=== PATIENT | male | born 1985 | race Caucasian/White ===

== ENCOUNTER → 2021-07-23 16:25 | Outpatient (CLI) | payer OTHER, SELFPAY ==
--- NOTE | 2021-07-23 16:35 | MRI_ITS ---
EXAM: MR HEAD WITHOUT AND WITH INTRAVENOUS CONTRAST CLINICAL INDICATION: DIZZINESS -- IAC TECHNIQUE: Multiplanar and multisequence MR images of the brain were obtained without and with intravenous contrast. This report was created using [email or web address] technology. CONTRAST: IV 22cc dotarem COMPARISON: None. FINDINGS: BRAIN AND EXTRA-AXIAL SPACES: Unremarkable. No intra- or extra-axial hemorrhage. No evidence of acute infarct. No intracranial mass or mass effect. There is preservation of the bright/white matter interface. Posterior fossa structures are unremarkable. Ventricles are appropriate for age. No hydrocephalus. Basal cisterns are patent. SELLA: Unremarkable. Normal sella turcica, pituitary gland, infundibular stalk, optic chiasm and hypothalamus. AUDITORY SYSTEM: Unremarkable. The internal auditory canals are patent. BONES/JOINTS: Unremarkable. No discrete lytic or blastic abnormalities. SINUSES: There is sinus disease. MASTOID AIR CELLS: Unremarkable as visualized. Clear. ORBITS: Unremarkable as visualized. Both globes, extraocular muscles, optic nerves and retrobulbar fat appear unremarkable. VASCULATURE: Unremarkable as visualized. Normal flow voids in the major intracranial circulation. MRI/Brain W/WO Contrast IMPRESSION: No acute findings in the head/brain. Electronically Signed: Prashant Sharp MD at 18:17 EST , Service support ,
== END ==
PROVIDERS: Visit Provider Otolaryngology
DX: R42 Dizziness and giddiness (principal)
CPT/HCPCS: 70553; A9575

== ENCOUNTER 2021-09-10 10:35 | Outpatient (CLI) | payer OTHER, SELFPAY ==
[2021-09-10 10:38] LABS: Bacteria 0 SEEN /hpf (None Seen); Mucous, Urine 0 SEEN /hpf (<or=2+); Red Blood Cells-Urine 0 SEEN /hpf (0-5); White Blood Cells 0 SEEN /hpf (0-5)
[2021-09-10 12:28] LABS: Color, Urine Yellow (Yellow); Glucose, Dipstick Normal (Normal); Ketone-Dipstick Negative (Negative); Leukocyte Esterase-Dipstick Negative /ul (Negative); Nitrite-Dipstick Negative (Negative); Occult Blood-Urine Negative /ul (Negative); Protein-Dipstick Negative (Negative); Specific Gravity, Urine 1.015 (1.002-1.030); Urine Bilirubin Dipstick Negative (Negative); Urine Clarity Clear (Clear); Urine Urobilinogen Normal (Normal)
[2021-09-10 12:30] LABS: Absolute Lymphocyte Count 0.76 X10^3/uL (0.83-4.51); Absolute Neutrophil Count 3.8 X10^3/uL (2.0-7.7); Basophil# 0.04 X10^3/uL; Basophil% 0.7 % (0-1); Eosinophil# 0.66 X10^3/uL; Eosinophils% 11.3 % (0-5); Hematocrit 44.8 % (40-54); Hemoglobin 15.3 g/dL (13.0-16.5); Lymphocyte # 0.76 X10^3/ul (0.83-4.51); Mean Corp Hgb Conc 34.2 g/dL (32-36); Mean Corpuscular Hgb 29.1 pg (27.0-32.0); Mean Corpuscular Volume 85.2 fL (80-94); Mean Platelet Vol. 10.6 fl (6.2-12.0); Monocyte# 0.58 X10^3/uL; Monocyte% 9.9 % (0-10); NRBC Flagged by Analyzer 0 % (0-5); Neutrophil % 64.9 % (47-70); Platelet Count 201 K/mm3 (150-450); RBC Distribution Width CV 12.5 % (11.6-14.6); RBC Distribution Width SD 38.7 fl (35.1-43.9); Red Blood Count 5.26 M/mm3 (4.6-6.2); White Blood Count 5.9 K/mm3 (4.4-11.0)
[2021-09-10 12:33] LABS: Squamous Epithelial Cells - UA 0-5 SEEN /hpf (0-5)
[2021-09-10 13:24] LABS: ALB/GLOB Ratio 1.2 RATIO (0.9-2.4); AST(SGOT) 14 U/L (15-37); Alanine Aminotransfer ALT/SGPT 36 U/L (16-61); Albumin, Serum 4.1 g/dL (3.2-5.0); Alkaline Phosphatase 57 U/L (45-117); Anion Gap 6 (5-15); BUN 13 mg/dL (7-18); BUN/Creat Ratio 12.7 RATIO (10-20); Chloride 105 mmol/L (98-107); Cholesterol 196 mg/dL (200); Creatinine, Serum 1.02 mg/dL (0.70-1.30); EST Glomerular Filtration Rate 89 mL/min (>60); Est Glom Filt Rate - Afr Amer 107 mL/min (>60); Globulin 3.5 g/dL (2.2-4.2); Glucose 93 mg/dL (74-106); High Density Lipoprotein 44 mg/dL; Magnesium 2.2 mg/dL (1.6-2.6); Potassium 4.3 mmol/L (3.5-5.1); Protein, Total 7.6 g/dL (6.4-8.2); Sodium Level 139 mmol/L (136-145); Thyroid Stim Hormone (TSH) 1.96 uIU/mL (0.358-3.74); Triglycerides 114 mg/dL; Very Low Density Lipoprotein 23 mg/dL (5-40)
== END 2021-09-10 23:59 | disposition short-term general hospital (02) ==
LOC: MFPLAB 10:37
PROVIDERS: PCP Family Medicine; Referring Provider Family Medicine; Visit Provider Family Medicine
DX: R03.0 Elevated blood-pressure reading, without diagnosis of hypertension (principal); E66.9 Obesity, unspecified
CPT/HCPCS: 36415; 80053; 80061; 81001; 83735; 84443; 85025

== ENCOUNTER → 2021-12-28 | Outpatient (CLI) | payer OTHER, SELFPAY ==
--- NOTE | 2021-12-28 13:47 | RAD_ITS ---
EXAM: XR RIGHT FOOT COMPLETE, 3 OR MORE VIEWS CLINICAL INDICATION: PAIN TECHNIQUE: Frontal, lateral and oblique views of the right foot. This report was created using [employer] report generation technology. COMPARISON: None. FINDINGS: BONES/JOINTS: Unremarkable. No acute fracture. No subluxation. Normal alignment. Preservation of the joint space. No sclerotic or destructive changes observed. SOFT TISSUES: Unremarkable. No soft tissue swelling or gas. No radiopaque foreign body. RAD/Foot min 3 Views IMPRESSION: Negative right foot x-rays. Electronically Signed: Da Hahn MD at 18:06 EDT ,
--- NOTE | 2021-12-28 13:47 | RAD_ITS ---
EXAM: XR RIGHT ANKLE COMPLETE, 3 OR MORE VIEWS CLINICAL INDICATION: PAIN TECHNIQUE: Frontal, lateral and oblique views of the right ankle. This report was created using [employer] report generation technology. COMPARISON: None. FINDINGS: BONES/JOINTS: Unremarkable. No acute fracture. No subluxation. Normal alignment. Preservation of the joint space. No sclerotic or destructive changes observed. SOFT TISSUES: Minimal soft tissue swelling over the lateral malleolus. No radiopaque foreign body. RAD/Ankle min 3 Views IMPRESSION: Soft tissue swelling with no osseous abnormality. Electronically Signed: Da Hahn MD at 14:15 EDT ,
== END | disposition home or self-care (01) ==
PROVIDERS: PCP Family Medicine; Referring Provider Family Medicine; Visit Provider Family Medicine
DX: M25.571 Pain in right ankle and joints of right foot (principal); M79.671 Pain in right foot
CPT/HCPCS: 73610; 73630

== ENCOUNTER → 2023-10-19 | Outpatient (CLI) | payer OTHER, SELFPAY ==
--- NOTE | 2023-10-19 10:11 | RAD_ITS ---
INDICATION: abd pain EXAMINATION/TECHNIQUE: X-RAY - XR Abdomen Series W/ Chest 1 View COMPARISON: No relevant prior comparison study available FINDINGS: --Chest: LINES/DEVICES: None. LUNGS: No consolidation, edema or effusion. No pneumothorax. MEDIASTINUM AND CARDIOVASCULAR STRUCTURES: Cardiac silhouette not enlarged. Central airways and mediastinal contour are unremarkable. BONES AND SOFT TISSUES: No acute findings. --Abdomen: BOWEL GAS PATTERN: Non-obstructive. No bowel or stomach distention. Moderate fecal retention. FREE AIR: None visualized. ORGANOMEGALY: Not seen. CALCIFICATIONS: No abnormal calcifications observed. BONES AND SOFT TISSUES: No acute findings. RAD/Acute Abdomen Inc Chest IMPRESSION: No active pulmonary disease. Nonobstructive gas pattern. Electronically Signed: Angel Fox MD at 13:12 EST ,
[2023-10-19 12:42] LABS: Erythrocyte Sedimentation Rate 14 mm/hr (0-20)
[2023-10-19 13:09] LABS: Absolute Lymphocyte Count 1.11 X10^3/uL (0.83-4.51); Absolute Neutrophil Count 6.7 X10^3/uL (2.0-7.7); Basophil# 0.03 X10^3/uL; Basophil% 0.3 % (0-1); Eosinophils% 2.3 % (0-5); Hematocrit 43.9 % (40-54); Hemoglobin 14.4 g/dL (13.0-16.5); Lymphocyte # 1.11 X10^3/ul (0.83-4.51); Lymphocyte % 12.8 % (19-41); Mean Corp Hgb Conc 32.8 g/dL (32-36); Mean Corpuscular Hgb 29.3 pg (27.0-32.0); Mean Corpuscular Volume 89.2 fL (80-94); Mean Platelet Vol. 10.3 fl (6.2-12.0); Monocyte# 0.61 X10^3/uL; NRBC Flagged by Analyzer 0 % (0-5); Neutrophil # 6.71 X10^3/uL (2.7-7.7); Neutrophil % 77.1 % (47-70); Platelet Count 276 K/mm3 (150-450); RBC Distribution Width CV 12.7 % (11.6-14.6); RBC Distribution Width SD 41.1 fl (35.1-43.9); Red Blood Count 4.92 M/mm3 (4.6-6.2); White Blood Count 8.7 K/mm3 (4.4-11.0)
[2023-10-19 13:21] LABS: ALB/GLOB Ratio 1.1 RATIO (0.9-2.4); AST(SGOT) 15 U/L (15-37); Alanine Aminotransfer ALT/SGPT 27 U/L (16-61); Albumin, Serum 3.8 g/dL (3.2-5.0); Alkaline Phosphatase 61 U/L (45-117); Anion Gap 5 (5-15); BUN 13 mg/dL (7-18); BUN/Creat Ratio 10.2 RATIO (10-20); Chloride 104 mmol/L (98-107); Creatinine, Serum 1.28 mg/dL (0.70-1.30); EST Glomerular Filtration Rate 67 mL/min (>60); Est Glom Filt Rate - Afr Amer 81 mL/min (>60); Globulin 3.6 g/dL (2.2-4.2); Glucose 124 mg/dL (74-106); Protein, Total 7.4 g/dL (6.4-8.2); Sodium Level 136 mmol/L (136-145)
[2023-10-25 00:07] LABS: Calprotectin, Stool 18 ug/g (0-120)
== END | disposition home or self-care (01) ==
PROVIDERS: PCP Family Medicine; Referring Provider Family Medicine; Visit Provider Family Medicine
DX: K52.9 Noninfective gastroenteritis and colitis, unspecified (principal); R10.9 Unspecified abdominal pain
CPT/HCPCS: 36415; 74022; 80053; 83630; 83993; 85025; 85652

== ENCOUNTER → 2024-01-26 | Outpatient (CLI) | payer OTHER, SELFPAY ==
[2024-01-26 17:49] LABS: Absolute Lymphocyte Count 1.39 X10^3/uL (0.83-4.51); Absolute Neutrophil Count 3.6 X10^3/uL (2.0-7.7); Basophil# 0.05 X10^3/uL; Basophil% 0.8 % (0-1); Eosinophils% 6.8 % (0-5); Hematocrit 44.7 % (40-54); Hemoglobin 15.3 g/dL (13.0-16.5); Lymphocyte # 1.39 X10^3/ul (0.83-4.51); Lymphocyte % 23.6 % (19-41); Mean Corp Hgb Conc 34.2 g/dL (32-36); Mean Corpuscular Hgb 29.5 pg (27.0-32.0); Mean Corpuscular Volume 86.3 fL (80-94); Mean Platelet Vol. 10.9 fl (6.2-12.0); Monocyte# 0.48 X10^3/uL; Monocyte% 8.1 % (0-10); NRBC Flagged by Analyzer 0 % (0-5); Neutrophil # 3.56 X10^3/uL (2.7-7.7); Neutrophil % 60.4 % (47-70); Platelet Count 296 K/mm3 (150-450); RBC Distribution Width CV 12.7 % (11.6-14.6); RBC Distribution Width SD 39.7 fl (35.1-43.9); Red Blood Count 5.18 M/mm3 (4.6-6.2); White Blood Count 5.9 K/mm3 (4.4-11.0)
[2024-01-26 18:19] LABS: Vitamin B12 368 pg/mL (211-911); Vitamin D,25 Hydroxy 28.3 ng/mL
[2024-01-26 18:34] LABS: ALB/GLOB Ratio 1.4 RATIO (0.9-2.4); AST(SGOT) 18 U/L (15-37); Alanine Aminotransfer ALT/SGPT 36 U/L (16-61); Albumin, Serum 4.3 g/dL (3.2-5.0); Alkaline Phosphatase 65 U/L (45-117); Anion Gap 7 (5-15); BUN 25 mg/dL (7-18); BUN/Creat Ratio 17.2 RATIO (10-20); Chloride 106 mmol/L (98-107); Creatinine, Serum 1.45 mg/dL (0.70-1.30); EST Glomerular Filtration Rate 58 mL/min (>60); Est Glom Filt Rate - Afr Amer 70 mL/min (>60); Globulin 3.1 g/dL (2.2-4.2); Glucose 84 mg/dL (74-106); Potassium 4.2 mmol/L (3.5-5.1); Protein, Total 7.4 g/dL (6.4-8.2); Sodium Level 138 mmol/L (136-145); T4 Free Direct 0.78 ng/dL (0.76-1.46); Thyroid Stim Hormone (TSH) 1.48 uIU/mL (0.358-3.74)
== END | disposition home or self-care (01) ==
LOC: MFPLAB 14:19
PROVIDERS: PCP Family Medicine; Referring Provider Family Medicine; Visit Provider Family Medicine
DX: K52.9 Noninfective gastroenteritis and colitis, unspecified (principal); R10.9 Unspecified abdominal pain; R53.83 Other fatigue
CPT/HCPCS: 36415; 80053; 82306; 82607; 84439; 84443; 85025

== ENCOUNTER → 2024-02-03 | Outpatient (CLI) | payer OTHER, SELFPAY ==
[2024-02-03 18:02] LABS: Anion Gap 6 (5-15); BUN 21 mg/dL (7-18); BUN/Creat Ratio 18.3 RATIO (10-20); Calcium,Total 9.2 mg/dL (8.5-10.1); Chloride 105 mmol/L (98-107); Creatinine, Serum 1.15 mg/dL (0.70-1.30); EST Glomerular Filtration Rate 76 mL/min (>60); Est Glom Filt Rate - Afr Amer 92 mL/min (>60); Glucose 97 mg/dL (74-106); Potassium 4.1 mmol/L (3.5-5.1); Sodium Level 138 mmol/L (136-145)
== END | disposition home or self-care (01) ==
PROVIDERS: PCP Family Medicine; Visit Provider Family Medicine
DX: R94.4 Abnormal results of kidney function studies (principal)
CPT/HCPCS: 36415; 80048

== ENCOUNTER → 2024-07-19 | Outpatient (CLI) | payer OTHER, SELFPAY ==
[2024-07-19 18:35] LABS: ALB/GLOB Ratio 1.3 RATIO (0.9-2.4); AST(SGOT) 21 U/L (15-37); Alanine Aminotransfer ALT/SGPT 48 U/L (16-61); Albumin, Serum 4.5 g/dL (3.2-5.0); Alkaline Phosphatase 59 U/L (45-117); Anion Gap 7 (5-15); BUN 20 mg/dL (7-18); BUN/Creat Ratio 16.5 RATIO (10-20); Calcium,Total 9.3 mg/dL (8.5-10.1); Chloride 102 mmol/L (98-107); Creatinine, Serum 1.21 mg/dL (0.70-1.30); EST Glomerular Filtration Rate 72 mL/min (>60); Est Glom Filt Rate - Afr Amer 87 mL/min (>60); Globulin 3.4 g/dL (2.2-4.2); Glucose 100 mg/dL (74-106); Magnesium 2.2 mg/dL (1.6-2.6); Protein, Total 7.9 g/dL (6.4-8.2); Sodium Level 136 mmol/L (136-145)
[2024-07-20 09:12] LABS: Vitamin D,25 Hydroxy 50.7 ng/mL
== END | disposition home or self-care (01) ==
LOC: MFPLAB 16:09
PROVIDERS: PCP Family Medicine; Visit Provider Family Medicine
DX: E55.9 Vitamin D deficiency, unspecified (principal)
CPT/HCPCS: 36415; 80053; 82306; 83735

== ENCOUNTER → 2024-11-06 | Outpatient (CLI) | payer OTHER, SELFPAY ==
[2024-11-06 17:45] LABS: Absolute Lymphocyte Count 1.26 X10^3/uL (0.83-4.51); Absolute Neutrophil Count 2.7 X10^3/uL (2.0-7.7); Basophil# 0.05 X10^3/uL; Basophil% 1.1 % (0-1); Eosinophil# 0.27 X10^3/uL; Eosinophils% 5.8 % (0-5); Hematocrit 46.5 % (40-54); Hemoglobin 15.3 g/dL (13.0-16.5); Lymphocyte # 1.26 X10^3/ul (0.83-4.51); Lymphocyte % 27.2 % (19-41); Mean Corp Hgb Conc 32.9 g/dL (32-36); Mean Corpuscular Hgb 29.5 pg (27.0-32.0); Mean Corpuscular Volume 89.6 fL (80-94); Mean Platelet Vol. 10.7 fl (6.2-12.0); Monocyte# 0.33 X10^3/uL; Monocyte% 7.1 % (0-10); NRBC Flagged by Analyzer 0 % (0-5); Neutrophil # 2.71 X10^3/uL (2.7-7.7); Neutrophil % 58.6 % (47-70); Platelet Count 274 K/mm3 (150-450); RBC Distribution Width CV 12.9 % (11.6-14.6); RBC Distribution Width SD 42.5 fl (35.1-43.9); Red Blood Count 5.19 M/mm3 (4.6-6.2); White Blood Count 4.6 K/mm3 (4.4-11.0)
[2024-11-06 21:16] LABS: ALB/GLOB Ratio 1.7 RATIO (0.9-2.4); AST(SGOT) 19 U/L (<=37); Alanine Aminotransfer ALT/SGPT 24 U/L (<=46); Albumin, Serum 4.6 g/dL (3.5-5.0); Alkaline Phosphatase 57 U/L (40-129); Anion Gap 12 (5-15); BUN 19 mg/dL (4-19); BUN/Creat Ratio 17.5 RATIO (10-20); Calcium,Total 9.7 mg/dL (7.6-11.0); Carbon Dioxide 25.7 mmol/L (21.0-32.0); Chloride 102 mmol/L (98-108); Cholesterol 217 mg/dL (<=200); Creatinine, Serum 1.08 mg/dL (0.70-1.20); EST Glomerular Filtration Rate 91 (>60); Globulin 2.7 g/dL (2.2-4.2); Glucose 79 mg/dL (70-99); High Density Lipoprotein 45 mg/dL; Low Density Lipoprotein Calc. 155 mg/dL; Magnesium 2.1 mg/dL (1.5-2.2); Potassium 4.3 mmol/L (3.3-5.1); Protein, Total 7.3 g/dL (5.9-8.4); Sodium Level 139 mmol/L (133-145); Total Bilirubin 0.47 mg/dL (0.00-1.30); Triglycerides 84 mg/dL; Very Low Density Lipoprotein 17 mg/dL (5-40); Vitamin D,25 Hydroxy 77.5 ng/mL (30-100)
== END | disposition home or self-care (01) ==
LOC: MFPLAB 13:36
PROVIDERS: PCP Family Medicine; Referring Provider Family Medicine; Visit Provider Family Medicine
DX: E55.9 Vitamin D deficiency, unspecified (principal); R94.4 Abnormal results of kidney function studies; E66.9 Obesity, unspecified
CPT/HCPCS: 36415; 80053; 80061; 82306; 83735; 85025

== ENCOUNTER → 2025-01-22 | Outpatient (CLI) | payer OTHER, SELFPAY ==
[2025-01-22 20:40] LABS: ALB/GLOB Ratio 1.7 RATIO (0.9-2.4); AST(SGOT) 23 U/L (<=37); Alanine Aminotransfer ALT/SGPT 22 U/L (<=46); Albumin, Serum 4.7 g/dL (3.5-5.0); Alkaline Phosphatase 68 U/L (40-129); Anion Gap 11 (5-15); BUN 21 mg/dL (4-19); BUN/Creat Ratio 15.8 RATIO (10-20); Calcium,Total 10.1 mg/dL (7.6-11.0); Carbon Dioxide 27.2 mmol/L (21.0-32.0); Chloride 102 mmol/L (98-108); Creatinine, Serum 1.32 mg/dL (0.70-1.20); EST Glomerular Filtration Rate 71 (>60); Globulin 2.8 g/dL (2.2-4.2); Glucose 71 mg/dL (70-99); Magnesium 2.4 mg/dL (1.5-2.2); Potassium 4.4 mmol/L (3.3-5.1); Protein, Total 7.5 g/dL (5.9-8.4); Sodium Level 140 mmol/L (133-145); Total Bilirubin 0.52 mg/dL (0.00-1.30); Vitamin D,25 Hydroxy 85.6 ng/mL (30-100)
== END | disposition home or self-care (01) ==
LOC: MFPLAB 15:06
PROVIDERS: PCP Family Medicine; Referring Provider Family Medicine; Visit Provider Family Medicine
DX: E55.9 Vitamin D deficiency, unspecified (principal); E83.42 Hypomagnesemia
CPT/HCPCS: 36415; 80053; 82306; 83735

== ENCOUNTER → 2025-08-07 | Outpatient (CLI) | payer OTHER, SELFPAY ==
--- OUTSIDE RECORDS SUMMARY | 2025-08-07 08:49 | XMS RPT_ITS | CCD ---
Author Organization [facility] Care Team Providers Care American History Teacher Name Role Phone MOISÉS MILLS Unavailable Unavailable MEEK SONG Unavailable Unavailable HADLEY MOORE Unavailable Unavailable ISHAAN WOODARD, ANGELA Primary Care Physician HADLEY MOORE Primary Care Unavailable MILDRED LOZADA Attending Unavailable Hadley Moore MD Primary Care Provider John Farris Unavailable RAMON CHAHAL DO Attending Unavailable ISHAAN WOODARD, ANGELA Primary Care Unavailable DR CHRISTIANO MOMIN MD Attending Unavailalex QUIROS MD, ANGELA Primary Care Unavailable TRELL KABA Attending UnavailANGELA Faria MD Primary Care Unavailable Dr. Angela Quiros MD Primary Care Provider Dr. Angela Quiros MD Attending Provider Dr. Angela Quiros MD Referring Provider Dr. Angela Quiros MD Primary Care Provider [phone] Dr. Angela Quiros MD Attending Provider Angela Quiros Attending Unavailable Angela Quiros Primary Care Unavailable Angela Quiros Attending Unavailable Angela Quiros Primary Care Unavailable Angela Quiros Attending Unavailable Angela Quiros Primary Care Unavailable Angela Quiros Referring Unavailable Angela Quiros Attending Unavailable Angela Quiros Primary Care Unavailable Angela Quiros Referring Unavailable Allergies Allergy Classification Reported Allergen(s) Allergy Type Date of Onset Reaction(s) Facility (2 sources) Amoxicillin; Translations: [AMOXICILLIN] Drug Allergy 07-26-2013 Diarrhea [facility] Repository Medications Current Medications Medication Drug Class(es) Dates Sig (Normalized) Sig (Original) acetaminophen 325 mg / HYDROcodone bitartrate 5 mg oral tablet (1 source) Opioid Agonist Start: 10-18-2023 End: 10-21-2023 take 1 tablet by mouth every six hours as needed for pain [place] 325- 5 mg oral tablet Dose = 1 tab(s), Oral, q6h, PRN as needed for pain, X 3 day(s), # 12 tab(s), 0 Refill(s), Abdominal pain, 118.2 Start Date: 10/18/23 Stop Date: 10/21/23 Status: Ordered albuterol MDI (90 mcg/inh) CFC free inhalation aerosol (1 source) Start: 08-16-2020 take 2 puff(s) by inhalation every four hours albuterol MDI (90 mcg/inh) CFC free inhalation aerosol 2 puff(s), Inhalation, q4h, # 1 EA, 0 Refill(s), Suspected COVID-19 Dyspnea Start Date: 08/16/20 Status: Ordered cetirizine hydrochloride 10 mg oral tablet (3 sources) Histamine-1 Receptor Antagonist Start: 10-06-2022 Zyrtec 10 mg oral tablet Dose : 10 mg = 1 tab(s), Oral, qDay, # 30 tab(s), 0 Refill(s) Start Date: 10/06/22 Status: Ordered ondansetron 4 mg disintegrating oral tablet (1 source) Serotonin-3 Receptor Antagonist Start: 10-18-2023 End: 10-22-2023 ondansetron 4 mg oral tablet, disintegrating Dose : 4 mg = 1 tab(s), Oral, q6h, X 4 day(s), # 16 tab(s), 0 Refill(s), 10/22/23 12:12:00 AM EST Start Date: 10/18/23 Stop Date: 10/22/23 Status: Ordered Testosterone (3 sources) Androgen Start: 10-06-2022 testosterone cypionate qWeek, 0 Refill(s), 118.2 Start Date: 10/06/22 Status: Ordered Completed/Discontinued Medications Medication Drug Class(es) Dates Sig (Normalized) Sig (Original) Magnesium glycinate (1 source) take 600 mg by mouth once daily MAGNESIUM GLYCINATE ORAL Take 600 mg by mouth once daily. 0 Active Comment on above: Take 600 mg by mouth once daily. omeprazole 20 mg delayed release oral capsule (1 source) Proton Pump Inhibitor Start: 11-28-2013 End: 01-18-2023 take 2 capsules by mouth once daily before breakfast omeprazole (PRILOSEC) 20 mg capsule Take 2 capsules by mouth daily before breakfast. 60 capsule 0 11/28/2013 01/18/2023 Discontinued Comment on above: Take 2 capsules by m outh daily before breakfast. predniSONE 10 mg oral tablet (3 sources) Start: 10-06-2022 End: 10-18-2022 prednisone 10mg tab (TAPER) Taper 40-30-20-10 x 3 days each dose, Oral, qDay, Take with food/meal, # 30 tab(s), 0 Refill(s), Pharmacy: [facility]/pharmacy #[id number] Start Date: 10/06/22 Stop Date: 10/18/22 Status: Ordered sertraline 50 mg oral tablet (1 source) Serotonin Reuptake Inhibitor Start: 01-02-2023 take 1 tablet by mouth once daily sertraline (ZOLOFT) 50 mg tablet Take 50 mg by mouth once daily. 0 01/02/2023 Active Comment on above: Take 50 mg by mouth once daily. Problems Active Problems Problem Classification Problem Date Documented Da te Episodic/Chronic Abdominal pain (3 sources) Abdominal pain; Translations: [Unspecified abdominal pain] Onset: 10-18-2023 Episodic Contraceptive and procreative management (2 sources) Encounter for other general counseling and advice on contraception; Translations: [Patient encounter status] Onset: 01-18-2023 Episodic Malaise and fatigue (1 source) Fatigue; Translations: [Other fatigue] Episodic Nutritional deficiencies (2 sources) Vitamin D deficiency; Translations: [Vitamin D deficiency, unspecified] Onset: 01-29-2025 Chronic Other endocrine disorders (1 source) Disorder of endocrine testis; 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, unspecified] Chronic Other endocrine disorders (1 source) Testicular hypofunction; Translations: [Testicular hypofunction] Chronic Other screening for suspected conditions (not mental disorders or infectious disease) (2 sources) Abnormal findings on diagnostic imaging of other specified body structures; Translations: [Abnormal findings on diagnostic imaging of other specified body structures] Onset: 10-28-2023 Chronic Other upper respiratory disease (3 sources) Seasonal allergy 10-06-2022 Chronic Past or Other Problems Problem Classification Problem Date Documented Da te Episodic/Chronic Other screening for suspected conditions (not mental disorders or infectious disease) (1 source) Abnormal results of kidney function studies; Translations: [Abnormal results of kidney function studies] Onset: 02-14-2024 Episodic Results Test Name Value Interpretation Reference Range Facility Anion gap in Serum or Plasma Ordered By: Angela Quiros on 01-22-2025 Anion gap [Moles/Vol] 11 mmol/L - [facility] BUN/creatinine ratioOrdered By: Angela Quiros on 01-22-2025 Urea nitrogen/Creatinine [Mass ratio] 15.8 mg/mg 06-03 [facility] Bilirubin, totalOrdered By: Angela Quiros on 01-22-2025 Bilirubin [Mass/Vol] 0.52 mg/dL 0.00-1.30 [facility] Carbon dioxide, total [Moles /volume] in Central venous bloodOrdered By: Angela Quiros on 01-22-2025 CO2 [Moles/Vol] 27.2 mmol/L 21.0-32.0 [facility] Chloride assayOrdered By: Denisha Quiros on 01-22-2025 Chloride [Moles/Vol] 102 mmol/L 98-108 [facility] Comprehensive Metabolic Prof ilon 01-22-2025 Albumin [Mass/Vol] 4.7 g/dL Normal 3.5-5.0 [facility] Comment on above: Order Comment: Order Date: 07/19/24 Order Info: 0786-1 - CMP Order Info: [id number] - MG Performed By: #### L 506.1000, L500.4050, L501.5200 #### [facility] [address] [place], [address] Albumin/Globulin [Mass ratio] 1.7 {ratio} Normal 0.9-2.4 [facility] Comment on above: Order Comment: Order Date: 07/19/24 Order Info: 0786-1 - CMP Order Info: [id number] - MG Performed By: #### L 506.1000, L500.4050, L501.5200 #### [facility] [address] [place], [address] ALK PHOS 68 U/L Normal 40-129 [facility] Comment on above: Order Comment: Order Date: 07/19/24 Order Info: [id number] - CMP Order Info: [id number] - MG Performed By: #### L 506.1000, L500.4050, L501.5200 #### [facility] [address] [place], [address] ALT [Catalytic activity/Vol] 22 U/L Normal <=46 [facility] Comment on above: Order Comment: Order Date: 07/19/24 Order Info: [id number] - CMP Order Info: [id number] - MG Performed By: #### L 506.1000, L500.4050, L501.5200 #### [facility] [address] [place], [address] AST [Catalytic activity/Vol] 23 U/L Normal <=37 [facility] Comment on above: Order Comment: Order Date: 07/19/24 Order Info: [id number] - CMP Order Info: [id number] - MG Performed By: #### L 506.1000, L500.4050, L501.5200 #### [facility] [address] [place], [address] Bilirubin [Mass/Vol] 0.52 mg/dL Normal 0.00-1.30 [facility] Comment on above: Order Comment: Order Date: 07/19/24 Order Info: 0786-1 - CMP Order Info: [id number] - MG Performed By: #### L 506.1000, L500.4050, L501.5200 #### [facility] [address] [place], [address] BUN/CRE 15.8 RATIO Normal 10-20 [facility] Comment on above: Order Comment: Order Date: 07/19/24 Order Info: [id number] - CMP Order Info: [id number] - MG Performed By: #### L 506.1000, L500.4050, L501.5200 #### [facility] [address] [place], [address] Calcium [Mass/Vol] 10.1 mg/dL Normal 7.6-11.0 [facility] Comment on above: Order Comment: Order Date: 07/19/24 Order Info: [id number] - CMP Order Info: [id number] - MG Performed By: #### L 506.1000, L500.4050, L501.5200 #### [facility] [address] [place], [address] Chloride [Moles/Vol] 102 mmol/L Normal 98-108 [facility] Comment on above: Order Comment: Order Date: 07/19/24 Order Info: [id number] - CMP Order Info: [id number] - MG Performed By: #### L 506.1000, L500.4050, L501.5200 #### [facility] [address] [place], [address] CO2 [Moles/Vol] 27.2 mmol/L Normal 21.0-32.0 [facility] Comment on above: Order Comment: Order Date: 07/19/24 Order Info: 0786-1 - CMP Order Info: [id number] - MG Performed By: #### L 506.1000, L500.4050, L501.5200 #### [facility] [address] [place], [address] Creatinine [Mass/Vol] 1.32 mg/dL High 0.70-1.20 [facility] Comment on above: Order Comment: Order Date: 07/19/24 Order Info: [id number] - CMP Order Info: [id number] - MG Performed By: #### L 506.1000, L500.4050, L501.5200 #### [facility] [address] [place], [address] GAP 11 Normal 5-15 [facility] Comment on above: Order Comment: Order Date: 07/19/24 Order Info: 0786-1 - CMP Order Info: [id number] - MG Performed By: #### L 506.1000, L500.4050, L501.5200 #### [facility] [address] [place], [address] GFR/1.73 sq M.predicted among non-blacks MDRD (S/P/Bld) [Vol rate/Area] 71 mL/min/{1.73_m2} Normal >60 [facility] Comment on above: Order Comment: Order Date: 07/19/24 Order Info: [id number] - CMP Order Info: [id number] - MG Result Comment: mL/m in/1.73m2 CKD-EPI Creatinine Equation (2020) Performed By: #### L 506.1000, L500.4050, L501.5200 #### [facility] [address] [place], [address] Globulin (S) [Mass/Vol] 2.8 g/dL Normal 2.2-4.2 [facility] Comment on above: Order Comment: Order Date: 07/19/24 Order Info: 0786-1 - CMP Order Info: [id number] - MG Performed By: #### L 506.1000, L500.4050, L501.5200 #### [facility] [address] [place], [address] Glucose [Mass/Vol] 71 mg/dL Normal 70-99 [facility] Comment on above: Order Comment: Order Date: 07/19/24 Order Info: [id number] - CMP Order Info: [id number] - MG Performed By: #### L 506.1000, L500.4050, L501.5200 #### [facility] [address] [place], [address] Potassium [Moles/Vol] 4.4 mmol/L Normal 3.3-5.1 [facility] Comment on above: Order Comment: Order Date: 07/19/24 Order Info: 0786-1 - CMP Order Info: [id number] - MG Performed By: #### L 506.1000, L500.4050, L501.5200 #### [facility] [address] [place], [address] Sodium [Moles/Vol] 140 mmol/L Normal 133-145 [facility] Comment on above: Order Comment: Order Date: 07/19/24 Order Info: 0786-1 - CMP Order Info: [id number] - MG Performed By: #### L 506.1000, L500.4050, L501.5200 #### [facility] [address] [place], [address] T PROT 7.5 g/dL Normal 5.9-8.4 [facility] Comment on above: Order Comment: Order Date: 07/19/24 Order Info: 0786-1 - CMP Order Info: [id number] - MG Performed By: #### L 506.1000, L500.4050, L501.5200 #### [facility] [address] [place], [address] Urea nitrogen [Mass/Vol] 21 mg/dL High 4-19 [facility] Comment on above: Order Comment: Order Date: 07/19/24 Order Info: [id number] - CMP Order Info: [id number] - MG Performed By: #### L 506.1000, L500.4050, L501.5200 #### [facility] [address] [place], [address] Glomerular filtration rate ( GFR) estimation/1.73 sq m using serum, plasma, or whole bOrdered By: Angela Quiros on 01-22-2025 GFR/1.73 sq M.predicted among non-blacks MDRD (S/P/Bld) [Vol rate/Area] 71 mL/min/{1.73_m2} >60 [facility] Comment on above: mL/min/1.73m2 CKD-EP I Creatinine Equation (2020) Laboratory - Chemistry and C hemistry - challengeOrdered By: Angela Quiros on 01-22-2025 AST [Catalytic activity/Vol] 23 U/L <38 [facility] Magnesiumon 01-22-2025 Magnesium [Mass/Vol] 2.4 mg/dL High 1.5-2.2 [facility] Comment on above: Order Comment: Order Date: 07/19/24 Order Info: [id number] - CMP Order Info: [id number] - MG Performed By: #### L 506.1000, L500.4050, L501.5200 #### [facility] [address] [place], [place], [id number] Magnesium measurement (mass/ volume)Ordered By: Angela Quiros on 01-22-2025 Magnesium (Unsp spec) [Mass/Vol] 2.4 mg/dL High 1.5-2.2 [facility] Potassium measurement (mass/ volume)Ordered By: Angela Quiros on 01-22-2025 Potassium (Unsp spec) [Mass/Vol] 4.4 mmol/L 3.3-5.1 [facility] Serum creatinine measurement (mass/volume)Ordered By: Angela Quiros on 01-22-2025 Creatinine [Mass/Vol] 1.32 mg/dL High 0.70-1.20 [facility] Serum globulin measurementOr dered By: Angela Quiros on 01-22-2025 Globulin (S) [Mass/Vol] 2.8 g/dL 2.2-4.2 [facility] Serum glucose measurement (m ass/volume)Ordered By: Angela Quiros on 01-22-2025 Glucose [Mass/Vol] 71 mg/dL 70-99 [facility] Serum or plasma alanine caicedo otransferase (ALT) measurementOrdered By: Angela Quiros on 01-22-2025 ALT [Catalytic activity/Vol] 22 U/L <47 [facility] Serum or plasma albumin philippe urement (mass/volume)Ordered By: Angela Quiros on 01-22-2025 Albumin [Mass/Vol] 4.7 g/dL 3.5-5.0 [facility] Serum or plasma albumin/glob ulin mass ratioOrdered By: Angela Quiros on 01-22-2025 Albumin/Globulin [Mass ratio] 1.7 {ratio} 0.9-2.4 [facility] Serum or plasma alkaline mercy sphatase measurementOrdered By: Angela Quiros on 01-22-2025 ALP [Catalytic activity/Vol] 68 U/L 40-129 [facility] Serum or plasma calcium philippe urement (mass/volume)Ordered By: Angela Quiros on 01-22-2025 Calcium [Mass/Vol] 10.1 mg/dL 7.6-11.0 [facility] Serum or plasma urea nitroge n measurement (mass/volume)Ordered By: Angela Quiros on 01-22-2025 Urea nitrogen [Mass/Vol] 21 mg/dL High 4-19 [facility] Sodium levelOrdered By: Angela Quiros on 01-22-2025 Sodium [Moles/Vol] 140 mmol/L 133-145 [facility] Total proteinOrdered By: Aamir Quiros on 01-22-2025 Protein [Mass/Vol] 7.5 g/dL 5.9-8.4 [facility] Vitamin D,25 Hydroxyon 01-22 Vitamin D 25-OH 85.6 ng/mL Normal 30-100 [facility] Comment on above: Order Comment: Order Date: 01/22/25 Order Info: [id number] - CMP Order Info: [id number] - MG Result Comment: Tbaby min D Status Deficiency: <20 ng/mL (50nmol/L) Insufficiency: 20-30 ng/mL (50-75 nmol/L) Sufficiency: 30-100 ng/mL (75-250 nmol/L) Toxicity: >100 ng/mL (>250 nmol/L) Performed By: #### L 506.1001 #### [facility] [address] [place], [place], [id number] Absolute lymphocyte countOrd ered By: Angela Quiros on 11-06-2024 Lymphocytes Auto (Unsp spec) [#/Vol] 1.26 10*3/uL 0.83-4.51 [facility] Absolute neutrophil countOrd ered By: Angela Quiros on 11-06-2024 Neutrophils (Bld) [#/Vol] 2.7 10*3/uL 2.0-7.7 [facility] Anion gap in Serum or Plasma Ordered By: Angela Quiros on 11-06-2024 Anion gap [Moles/Vol] 12 mmol/L 12-27 [facility] Automated lymphocyte count a s percentage of total leukocytesOrdered By: Angela Quiros on 11-06-2024 Lymphocytes/100 WBC Auto (Unsp spec) 27.2 % [facility] BUN/creatinine ratioOrdered By: Angela Quiros on 11-06-2024 Urea nitrogen/Creatinine [Mass ratio] 17.5 mg/mg 06-03 [facility] Basophil percentageOrdered B y: Angela Quiros on 11-06-2024 Basophils/100 WBC (Bld) 1.1 % High 0-1 [facility] Bilirubin, totalOrdered By: Angela Quiros on 11-06-2024 Bilirubin [Mass/Vol] 0.47 mg/dL 0.00-1.30 [facility] CBC W/Diff, Automatedon 10-14 Absolute Lymph 1.26 X10 3/uL Normal 0.83-4.51 [facility] Comment on above: Performed By: #### L 500.4050, L100.0100, L500.4100, L506.1001, L501.5200 #### [facility] [address] [place], [address] Absolute Neut 2.7 X10 3/uL Normal 2.0-7.7 [facility] Comment on above: Performed By: #### L 500.4050, L100.0100, L500.4100, L506.1001, L501.5200 #### [facility] [address] [place], [address] Basophils/100 WBC (Bld) 1.1 % High 0-1 [facility] Comment on above: Performed By: #### L 500.4050, L100.0100, L500.4100, L506.1001, L501.5200 #### [facility] [address] [place], [address] Eosinophils/100 WBC (Bld) 5.8 % High 0-5 [facility] Comment on above: Performed By: #### L 500.4050, L100.0100, L500.4100, L506.1001, L501.5200 #### [facility] [address] [place], [address] Erythrocyte distribution width (RBC) [Ratio] 12.9 % Normal 11.6-14.6 [facility] Comment on above: Performed By: #### L 500.4050, L100.0100, L500.4100, L506.1001, L501.5200 #### [facility] [address] [place], [address] Hematocrit (Bld) [Volume fraction] 46.5 % Normal 40-54 [facility] Comment on above: Performed By: #### L 500.4050, L100.0100, L500.4100, L506.1001, L501.5200 #### [facility] [address] [place], [address] Hemoglobin (Bld) [Mass/Vol] 15.3 g/dL Normal 13.0-16.5 [facility] Comment on above: Performed By: #### L 500.4050, L100.0100, L500.4100, L506.1001, L501.5200 #### [facility] [address] [place], [address] IG% 0.200 Normal 0.0-0.9 [facility] Comment on above: Result Comment: IG% - Immature Granulocytes (promyelocytes, myelocytes and metamyelocytes) > 1% indicates that a LEFT SHIFT is Present. Performed By: #### L 500.4050, L100.0100, L500.4100, L506.1001, L501.5200 #### [facility] [address] [place], [address] Lymphocytes/100 WBC (Bld) 27.2 % Normal 19-41 [facility] Comment on above: Performed By: #### L 500.4050, L100.0100, L500.4100, L506.1001, L501.5200 #### [facility] [address] [place], [address] MCH (RBC) [Entitic mass] 29.5 pg Normal 27.0-32.0 [facility] Comment on above: Performed By: #### L 500.4050, L100.0100, L500.4100, L506.1001, L501.5200 #### [facility] [address] [place], [address] MCHC (RBC) [Mass/Vol] 32.9 g/dL Normal 32-36 [facility] Comment on above: Performed By: #### L 500.4050, L100.0100, L500.4100, L506.1001, L501.5200 #### [facility] [address] [place], [address] MCV (RBC) [Entitic vol] 89.6 fL Normal 80-94 [facility] Comment on above: Performed By: #### L 500.4050, L100.0100, L500.4100, L506.1001, L501.5200 #### [facility] [address] [place], [address] Monocytes/100 WBC (Bld) 7.1 % Normal 0-10 [facility] Comment on above: Performed By: #### L 500.4050, L100.0100, L500.4100, L506.1001, L501.5200 #### [facility] [address] [place], [address] Neutrophils/100 WBC (Bld) 58.6 % Normal 47-70 [facility] Comment on above: Performed By: #### L 500.4050, L100.0100, L500.4100, L506.1001, L501.5200 #### [facility] [address] [place], [address] Nucleated RBC (Bld) [#/Vol] 0 10*3/uL Normal 0-5 [facility] Comment on above: Performed By: #### L 500.4050, L100.0100, L500.4100, L506.1001, L501.5200 #### [facility] [address] [place], [address] Platelet mean volume (Bld) [Entitic vol] 10.7 fL Normal 6.2-12.0 [facility] Comment on above: Performed By: #### L 500.4050, L100.0100, L500.4100, L506.1001, L501.5200 #### [facility] [address] [place], [address] Platelets (Bld) [#/Vol] 274 10*3/uL Normal 150-450 [facility] Comment on above: Performed By: #### L 500.4050, L100.0100, L500.4100, L506.1001, L501.5200 #### [facility] [address] [place], [address] RBC (Bld) [#/Vol] 5.19 10*6/uL Normal 4.6-6.2 [facility] Comment on above: Performed By: #### L 500.4050, L100.0100, L500.4100, L506.1001, L501.5200 #### [facility] [address] [place], [address] RDW SD 42.5 fl Normal 35.1-43.9 [facility] Comment on above: Performed By: #### L 500.4050, L100.0100, L500.4100, L506.1001, L501.5200 #### [facility] [address] [place], [place], [id number] WBC (Bld) [#/Vol] 4.6 10*3/uL Normal 4.4-11.0 [facility] Comment on above: Performed By: #### L 500.4050, L100.0100, L500.4100, L506.1001, L501.5200 #### [facility] [address] [place], [address] Calculated very low density lipoprotein (VLDL) cholesterol measurementOrdered By: Angela Quiros on 11-06-2024 Calculated very low density lipoprotein (VLDL) cholesterol measurement 17 mg/dL -40 [facility] VLDL Cholesterol 17 mg/dL 40 [facility] Carbon dioxide, total [Moles /volume] in Central venous bloodOrdered By: Angela Quiros on 11-06-2024 CO2 [Moles/Vol] 25.7 mmol/L 21.0-32.0 [facility] Chloride assayOrdered By: Denisha Quiros on 11-06-2024 Chloride [Moles/Vol] 102 mmol/L 98-108 [facility] Comprehensive Metabolic Prof ilon 11-06-2024 Albumin [Mass/Vol] 4.6 g/dL Normal 3.5-5.0 [facility] Comment on above: Performed By: #### L 500.4050, L100.0100, L500.4100, L506.1001, L501.5200 #### [facility] [address] [place], [place], [id number] Albumin/Globulin [Mass ratio] 1.7 {ratio} Normal 0.9-2.4 [facility] Comment on above: Performed By: #### L 500.4050, L100.0100, L500.4100, L506.1001, L501.5200 #### [facility] [address] [place], [address] ALK PHOS 57 U/L Normal 40-129 [facility] Comment on above: Performed By: #### L 500.4050, L100.0100, L500.4100, L506.1001, L501.5200 #### [facility] [address] [place], [address] ALT [Catalytic activity/Vol] 24 U/L Normal <=46 [facility] Comment on above: Performed By: #### L 500.4050, L100.0100, L500.4100, L506.1001, L501.5200 #### [facility] [address] [place], [address] AST [Catalytic activity/Vol] 19 U/L Normal <=37 [facility] Comment on above: Performed By: #### L 500.4050, L100.0100, L500.4100, L506.1001, L501.5200 #### [facility] [address] [place], [address] Bilirubin [Mass/Vol] 0.47 mg/dL Normal 0.00-1.30 [facility] Comment on above: Performed By: #### L 500.4050, L100.0100, L500.4100, L506.1001, L501.5200 #### [facility] [address] [place], [address] BUN/CRE 17.5 RATIO Normal 10-20 [facility] Comment on above: Performed By: #### L 500.4050, L100.0100, L500.4100, L506.1001, L501.5200 #### [facility] [address] [place], [address] Calcium [Mass/Vol] 9.7 mg/dL Normal 7.6-11.0 [facility] Comment on above: Performed By: #### L 500.4050, L100.0100, L500.4100, L506.1001, L501.5200 #### [facility] [address] [place], [address] Chloride [Moles/Vol] 102 mmol/L Normal 98-108 [facility] Comment on above: Performed By: #### L 500.4050, L100.0100, L500.4100, L506.1001, L501.5200 #### [facility] [address] [place], [address] CO2 [Moles/Vol] 25.7 mmol/L Normal 21.0-32.0 [facility] Comment on above: Performed By: #### L 500.4050, L100.0100, L500.4100, L506.1001, L501.5200 #### [facility] [address] [place], [address] Creatinine [Mass/Vol] 1.08 mg/dL Normal 0.70-1.20 [facility] Comment on above: Performed By: #### L 500.4050, L100.0100, L500.4100, L506.1001, L501.5200 #### [facility] [address] [place], [address] GAP 12 Normal 5-15 [facility] Comment on above: Performed By: #### L 500.4050, L100.0100, L500.4100, L506.1001, L501.5200 #### [facility] [address] [place], [address] GFR/1.73 sq M.predicted among non-blacks MDRD (S/P/Bld) [Vol rate/Area] 91 mL/min/{1.73_m2} Normal >60 [facility] Comment on above: Result Comment: mL/m in/1.73m2 CKD-EPI Creatinine Equation (2020) Performed By: #### L 500.4050, L100.0100, L500.4100, L506.1001, L501.5200 #### [facility] [address] [place], [address] Globulin (S) [Mass/Vol] 2.7 g/dL Normal 2.2-4.2 [facility] Comment on above: Performed By: #### L 500.4050, L100.0100, L500.4100, L506.1001, L501.5200 #### [facility] [address] [place], [address] Glucose [Mass/Vol] 79 mg/dL Normal 70-99 [facility] Comment on above: Performed By: #### L 500.4050, L100.0100, L500.4100, L506.1001, L501.5200 #### [facility] [address] [place], [address] Potassium [Moles/Vol] 4.3 mmol/L Normal 3.3-5.1 [facility] Comment on above: Performed By: #### L 500.4050, L100.0100, L500.4100, L506.1001, L501.5200 #### [facility] [address] [place], [address] Sodium [Moles/Vol] 139 mmol/L Normal 133-145 [facility] Comment on above: Performed By: #### L 500.4050, L100.0100, L500.4100, L506.1001, L501.5200 #### [facility] [address] [place], [address] T PROT 7.3 g/dL Normal 5.9-8.4 [facility] Comment on above: Performed By: #### L 500.4050, L100.0100, L500.4100, L506.1001, L501.5200 #### [facility] [address] [place], [address] Urea nitrogen [Mass/Vol] 19 mg/dL Normal 4-19 [facility] Comment on above: Performed By: #### L 500.4050, L100.0100, L500.4100, L506.1001, L501.5200 #### [facility] [address] [place], [address] Eosinophil percentageOrdered By: Angela Quiros on 11-06-2024 Eosinophils/100 WBC (Bld) 5.8 % High 0-5 [facility] Erythrocyte distribution wid th ratioOrdered By: Angela Quiros on 11-06-2024 Erythrocyte distribution width (RBC) [Ratio] 12.9 % 11.6-14.6 [facility] Erythrocyte distribution wid th standard deviationOrdered By: Angela Quiros on 11-06-2024 Erythrocyte distribution width (RBC) [Entitic vol] 42.5 fL 35.1-43.9 [facility] Erythrocyte distribution width (RBC) [Ratio] 42.5 fl 35.1-43.9 [facility] GFR/1.73 sq M.predicted torsten g non-blacks MDRD (S/P/Bld) [Vol rate/Area]Ordered By: Angela Quiros on 11-06-2024 Estimated GFR (MDRD) Non-Af Amer 91 >60 [facility] Comment on above: mL/min/1.73m2 CKD-EP I Creatinine Equation (2020) Glomerular filtration rate ( GFR) estimation/1.73 sq m using serum, plasma, or whole bOrdered By: Angela Quiros on 11-06-2024 GFR/1.73 sq M.predicted among non-blacks MDRD (S/P/Bld) [Vol rate/Area] 91 mL/min/{1.73_m2} >60 [facility] Comment on above: mL/min/1.73m2 CKD-EP I Creatinine Equation (2020) Hematocrit Auto (Bld) [Volum e fraction]Ordered By: Angela Quiros on 11-06-2024 Hematocrit (Bld) [Volume fraction] 46.5 % 40-54 [facility] Hemoglobin measurementOrdere d By: Angela Quiros on 11-06-2024 Hemoglobin (Bld) [Mass/Vol] 15.3 g/dL 13.0-16.5 [facility] Immature granulocytes/100 WB C Auto (Bld)Ordered By: Angela Quiros on 11-06-2024 Immature granulocytes/100 WBC (Bld) 0.200 % 0.0-0.9 [facility] Comment on above: IG% - Immature Granu locytes (promyelocytes, myelocytes and metamyelocytes) > 1% indicates that a LEFT SHIFT is Present. L506.1001on 11-06-2024 Vitamin D 25-OH 77.5 ng/mL Normal 30-100 [facility] Comment on above: Result Comment: Tabby min D Status Deficiency: <20 ng/mL (50nmol/L) Insufficiency: 20-30 ng/mL (50-75 nmol/L) Sufficiency: 30-100 ng/mL (75-250 nmol/L) Toxicity: >100 ng/mL (>250 nmol/L) Performed By: #### L 500.4050, L100.0100, L500.4100, L506.1001, L501.5200 #### [facility] [place], [address] LDL calc ser/plasOrdered By: Angela Quiros on 11-06-2024 Cholesterol in LDL [Mass/Vol] 155 mg/dL [facility] Comment on above: Zglcnykzez=471-416 m g/dL & Higher Ftzn=201 mg/dL or greater LDL Cholesterol, Calculated 155 mg/dL [facility] Comment on above: Kkukbubwdx=847-323 m g/dL & Higher Mhoo=508 mg/dL or greater Laboratory - Chemistry and C hemistry - challengeOrdered By: Angela Quiros on 11-06-2024 AST [Catalytic activity/Vol] 19 U/L <38 [facility] Lipid Profileon 11-06-2024 CHOL:HDL 4.80 Normal [facility] Comment on above: Performed By: #### L 500.4050, L100.0100, L500.4100, L506.1001, L501.5200 #### [facility] [address] [place], [address] Cholesterol [Mass/Vol] 217 mg/dL High <=200 [facility] Comment on above: Result Comment: Chol esterol level, Desirable <200 mg/dL Borderline high cholesterol 200-239 mg/dL High cholesterol >=240 mg/dL Recommendations of the NCEP Adult Treatment Panel for the following risk-cutoff thresholds for the [place] population. Performed By: #### L 500.4050, L100.0100, L500.4100, L506.1001, L501.5200 #### [facility] [address] [place], [address] Cholesterol in HDL [Mass/Vol] 45 mg/dL Normal [facility] Comment on above: Result Comment: Sandra onal Cholesterol Education Program (NCEP) guidelines: <40 mg/dL: Low HDL-cholesterol (major risk factor for CHD) >= 60 mg/dL: High HDL-cholesterol (negative risk factor for CHD) HDL-cholesterol is affected by a number of factors, e.g. smoking, exercise, hormones, sex and age. Performed By: #### L 500.4050, L100.0100, L500.4100, L506.1001, L501.5200 #### [facility] [address] [place], [address] Cholesterol in LDL [Mass/Vol] 155 mg/dL Normal [facility] Comment on above: Result Comment: Bord afgwch=952-180 mg/dL Higher Swfo=773 mg/dL or greater Performed By: #### L 500.4050, L100.0100, L500.4100, L506.1001, L501.5200 #### [facility] [address] [place], [address] Cholesterol in VLDL [Mass/Vol] 17 mg/dL Normal 5-40 [facility] Comment on above: Performed By: #### L 500.4050, L100.0100, L500.4100, L506.1001, L501.5200 #### [facility] [address] [place], [address] Triglyceride [Mass/Vol] 84 mg/dL Normal [facility] Comment on above: Result Comment: The drugs N-Acetylcysteine and Metamizole may falsely depress this assay. Normal range: <150 mg/dL Borderline High: 150-199 mg/dL High: 200-499 mg/dL Very High: >500 mg/dL Performed By: #### L 500.4050, L100.0100, L500.4100, L506.1001, L501.5200 #### [facility] [address] [place], [address] Lymphocytes Auto (Unsp spec) [#/Vol]Ordered By: Angela Quiros on 11-06-2024 Lymphocytes (Bld) [#/Vol] 1.26 10*3/uL 0.83-4.51 [facility] Lymphocytes/100 WBC Auto (Un sp spec)Ordered By: Angela Quiros on 11-06-2024 Lymphocytes/100 WBC (Bld) 27.2 % 19-41 [facility] MCV (mean corpuscular volume ) determinationOrdered By: Angela Quiros on 11-06-2024 MCV (RBC) [Entitic vol] 89.6 fL 80-94 [facility] Magnesiumon 11-06-2024 Magnesium [Mass/Vol] 2.1 mg/dL Normal 1.5-2.2 [facility] Comment on above: Performed By: #### L 500.4050, L100.0100, L500.4100, L506.1001, L501.5200 #### [facility] [address] [place], [address] Magnesium (Unsp spec) [Mass/ Vol]Ordered By: Angela Quiros on 11-06-2024 Magnesium [Mass/Vol] 2.1 mg/dL 1.5-2.2 [facility] Magnesium measurement (mass/ volume)Ordered By: Angela Quiros on 11-06-2024 Magnesium (Unsp spec) [Mass/Vol] 2.1 mg/dL 1.5-2.2 [facility] Mean corpuscular hemoglobin (MCH) determinationOrdered By: Angela Quiros on 11-06-2024 MCH (RBC) [Entitic mass] 29.5 pg 27.0-32.0 [facility] Mean corpuscular hemoglobin concentration (MCHC) determinationOrdered By: Angela Quiros on 11-06-2024 MCHC (RBC) [Mass/Vol] 32.9 g/dL 32-36 [facility] Mean platelet volume determi nationOrdered By: Angela Quiros on 11-06-2024 Platelet mean volume (Bld) [Entitic vol] 10.7 fL 6.2-12.0 [facility] Monocyte percentageOrdered B y: Angela Quiros on 11-06-2024 Monocytes/100 WBC (Bld) 7.1 % 0-10 [facility] Neutrophil percentageOrdered By: Angela Quiros on 11-06-2024 Neutrophils/100 WBC (Bld) 58.6 % 47-70 [facility] Nucleated red blood cell per centageOrdered By: Angela Quiros on 11-06-2024 Nucleated RBC/100 WBC (Bld) [Ratio] 0 % 0-5 [facility] Platelet countOrdered By: Denisha Quiros on 11-06-2024 Platelets (Bld) [#/Vol] 274 10*3/uL 150-450 [facility] Potassium (Unsp spec) [Mass/ Vol]Ordered By: Angela Quiros on 11-06-2024 Potassium [Moles/Vol] 4.3 mmol/L 3.3-5.1 [facility] Potassium measurement (mass/ volume)Ordered By: Angela Quiros on 11-06-2024 Potassium (Unsp spec) [Mass/Vol] 4.3 mmol/L 3.3-5.1 [facility] RBC Auto (Bld) [#/Vol]Ordere d By: Angela Quiros on 11-06-2024 RBC (Bld) [#/Vol] 5.19 10*6/uL 4.6-6.2 [facility] Screening total cholesterol/ high density lipoprotein (HDL) cholesterol ratioOrdered By: Angela Quiros on 11-06-2024 Cholesterol.total/Kimberly sterol in HDL [Mass ratio] 4.80 {ratio} [facility] Serum creatinine measurement (mass/volume)Ordered By: Angela Quiros on 11-06-2024 Creatinine [Mass/Vol] 1.08 mg/dL 0.70-1.20 [facility] Serum globulin measurementOr dered By: Angela Quiros on 11-06-2024 Globulin (S) [Mass/Vol] 2.7 g/dL 2.2-4.2 [facility] Serum glucose measurement (m ass/volume)Ordered By: Angela Quiros on 11-06-2024 Glucose [Mass/Vol] 79 mg/dL 70-99 [facility] Serum or plasma alanine caicedo otransferase (ALT) measurementOrdered By: Angela Quiros on 11-06-2024 ALT [Catalytic activity/Vol] 24 U/L <47 [facility] Serum or plasma albumin philippe urement (mass/volume)Ordered By: Angela Quiros on 11-06-2024 Albumin [Mass/Vol] 4.6 g/dL 3.5-5.0 [facility] Serum or plasma albumin/glob ulin mass ratioOrdered By: Angela Quiros on 11-06-2024 Albumin/Globulin [Mass ratio] 1.7 {ratio} 0.9-2.4 [facility] Serum or plasma alkaline mercy sphatase measurementOrdered By: Angela Quiros on 11-06-2024 ALP [Catalytic activity/Vol] 57 U/L 40-129 [facility] Serum or plasma calcium philippe urement (mass/volume)Ordered By: Angela Quiros on 11-06-2024 Calcium [Mass/Vol] 9.7 mg/dL 7.6-11.0 [facility] Serum or plasma cholesterol in HDL measurement (mass/volume)Ordered By: Angela Quiros on 11-06-2024 Cholesterol in HDL [Mass/Vol] 45 mg/dL >40 [facility] Comment on above: National Cholesterol Education Program (NCEP) guidelines:<40 mg/dL: Low HDL-cholesterol (major risk factor for CHD)>= 60 mg/dL: High HDL-cholesterol (negative risk factor for CHD)HDL-cholesterol is affected by a number of factors, e.g. smoking, exercise, hormones, sex and age. Serum or plasma cholesterol measurement (mass/volume)Ordered By: Angela Quiros on 11-06-2024 Cholesterol [Mass/Vol] 217 mg/dL High <201 [facility] Comment on above: Cholesterol level, D esirable <200 mg/dLBorderline high cholesterol 200-239 mg/dLHigh cholesterol >=240 mg/dLRecommendations of the NCEP Adult Treatment Panel for the following risk-cutoff thresholds for the [place] population. Serum or plasma urea nitroge n measurement (mass/volume)Ordered By: Angela Quiros on 11-06-2024 Urea nitrogen [Mass/Vol] 19 mg/dL 4-19 [facility] Sodium levelOrdered By: Angela Quiros on 11-06-2024 Sodium [Moles/Vol] 139 mmol/L 133-145 [facility] Total proteinOrdered By: Aamir Quiros on 11-06-2024 Protein [Mass/Vol] 7.3 g/dL 5.9-8.4 [facility] Triglycerides measurementOrd ered By: Angela Quiros on 11-06-2024 Triglyceride [Mass/Vol] 84 mg/dL <199 [facility] Comment on above: The drugs N-Acetylcy steine and Metamizole may falsely depress this assay. Normal range: <150 mg/dLBorderline High: 150-199 mg/dLHigh: 200-499 mg/dLVery High: >500 mg/dL Vitamin D, 25-hydroxyOrdered By: Angela Quiros on 11-06-2024 Vitamin D 25-Hydroxy 77.5 ng/mL 30-100 [facility] Comment on above: Vitamin D StatusDefi ciency: <20 ng/mL (50nmol/L)Insufficiency: 20-30 ng/mL (50-75 nmol/L)Sufficiency: 30-100 ng/mL (75-250 nmol/L)Toxicity: >100 ng/mL (>250 nmol/L) White blood cell (WBC) count Ordered By: Angela Quiros on 11-06-2024 WBC (Bld) [#/Vol] 4.6 10*3/uL 4.4-11.0 [facility] Vitamin D,25 Hydroxyon 07-20 Vitamin D 25-OH 50.7 ng/mL Normal [facility] Comment on above: Order Comment: Order Date: 07/19/24 Order Info: [id number] - VITD25 Result Comment: Tabby min D 25(OH) Status Range Deficiency <20 ng/mL (50nmol/L) Insufficiency 20 - 30 ng/mL (50 - 75 nmol/L) Sufficiency 30 - 100 ng/mL (75 - 250 nmol/L) Toxicity >100 ng/mL (>250 nmol/L) Performed By: #### L 506.1000, L500.4050, L501.5200 #### [facility] [address] [place], [address] [id number] DOrdered By: Fernanda Quiros on 07-19-2024 Vitamin D 25-Hydroxy 50.7 ng/mL [facility] Comment on above: Vitamin D 25(OH) Sta tus Range Deficiency <20 ng/mL (50nmol/L) Insufficiency 20 - 30 ng/mL (50 - 75 nmol/L) Sufficiency 30 - 100 ng/mL (75 - 250 nmol/L) Toxicity >100 ng/mL (>250 nmol/L) Albumin to globulin ratioOrd ered By: Angela Quiros on 07-19-2024 Albumin/Globulin [Mass ratio] 1.3 {ratio} 0.9-2.4 [facility] Bilirubin, totalOrdered By: Angela Quiros on 07-19-2024 Bilirubin [Mass/Vol] 0.40 mg/dL 0.20-1.00 [facility] Comment on above: For patients on eltr ombopag therapy, use of Dimension [place] TBIL is not recommended. Blood urea nitrogen (BUN)/cr eatinine ratioOrdered By: Angela Quiros on 07-19-2024 Urea nitrogen/Creatinine [Mass ratio] 16.5 mg/mg 10-20 [facility] Carbon dioxide measurementOr dered By: Angela Quiros on 07-19-2024 CO2 [Moles/Vol] 28.0 mmol/L 21.0-32.0 [facility] Chloride measurementOrdered By: Angela Quiros on 07-19-2024 Chloride [Moles/Vol] 102 mmol/L 98-107 [facility] Comprehensive Metabolic Prof ilon 07-19-2024 Albumin [Mass/Vol] 4.5 g/dL Normal 3.2-5.0 [facility] Comment on above: Order Comment: Order Date: 07/19/24 Order Info: [id number] - CMP Order Info: [id number] - MG Performed By: #### L 506.1000, L500.4050, L501.5200 #### [facility] [address] [place], [address] Albumin/Globulin [Mass ratio] 1.3 {ratio} Normal 0.9-2.4 [facility] Comment on above: Order Comment: Order Date: 07/19/24 Order Info: [id number] - CMP Order Info: [id number] - MG Performed By: #### L 506.1000, L500.4050, L501.5200 #### [facility] [address] [place], [address] ALK P 59 U/L Normal 45-117 [facility] Comment on above: Order Comment: Order Date: 07/19/24 Order Info: [id number] - CMP Order Info: [id number] - MG Performed By: #### L 506.1000, L500.4050, L501.5200 #### [facility] [address] [place], [address] ALT [Catalytic activity/Vol] 48 U/L Normal 16-61 [facility] Comment on above: Order Comment: Order Date: 07/19/24 Order Info: [id number] - CMP Order Info: [id number] - MG Performed By: #### L 506.1000, L500.4050, L501.5200 #### [facility] [address] [place], [address] AST [Catalytic activity/Vol] 21 U/L Normal 15-37 [facility] Comment on above: Order Comment: Order Date: 07/19/24 Order Info: [id number] - CMP Order Info: [id number] - MG Performed By: #### L 506.1000, L500.4050, L501.5200 #### [facility] [address] [place], [address] Bilirubin [Mass/Vol] 0.40 mg/dL Normal 0.20-1.00 [facility] Comment on above: Order Comment: Order Date: 07/19/24 Order Info: [id number] - CMP Order Info: [id number] - MG Result Comment: For patients on eltrombopag therapy, use of Dimension [place] TBIL is not recommended. Performed By: #### L 506.1000, L500.4050, L501.5200 #### [facility] [address] [place], [address] BUN/CRE 16.5 RATIO Normal 10-20 [facility] Comment on above: Order Comment: Order Date: 07/19/24 Order Info: [id number] - CMP Order Info: [id number] - MG Performed By: #### L 506.1000, L500.4050, L501.5200 #### [facility] [address] [place], [address] CA,Total 9.3 mg/dL Normal 8.5-10.1 [facility] Comment on above: Order Comment: Order Date: 07/19/24 Order Info: [id number] - CMP Order Info: [id number] - MG Performed By: #### L 506.1000, L500.4050, L501.5200 #### [facility] [address] [place], [address] Chloride [Moles/Vol] 102 mmol/L Normal 98-107 [facility] Comment on above: Order Comment: Order Date: 07/19/24 Order Info: [id number] - CMP Order Info: [id number] - MG Performed By: #### L 506.1000, L500.4050, L501.5200 #### [facility] [address] [place], [address] CO2 [Moles/Vol] 28.0 mmol/L Normal 21.0-32.0 [facility] Comment on above: Order Comment: Order Date: 07/19/24 Order Info: 07- - CMP Order Info: [id number] - MG Performed By: #### L 506.1000, L500.4050, L501.5200 #### [facility] [address] [place], [address] Creatinine [Mass/Vol] 1.21 mg/dL Normal 0.70-1.30 [facility] Comment on above: Order Comment: Order Date: 07/19/24 Order Info: [id number] - CMP Order Info: [id number] - MG Result Comment: The validity of the calculated GFR GFRAA in patients over 70 years has not been determined. Clinical correlation is essential. Performed By: #### L 506.1000, L500.4050, L501.5200 #### [facility] [address] [place], [address] EST GFR - AA 87 mL/min Normal >60 [facility] Comment on above: Order Comment: Order Date: 07/19/24 Order Info: 07- - CMP Order Info: [id number] - MG Result Comment: Afri can [place] GFR Calc Performed By: #### L 506.1000, L500.4050, L501.5200 #### [facility] [address] [place], [address] GAP 7 Normal 5-15 [facility] Comment on above: Order Comment: Order Date: 07/19/24 Order Info: 07- - CMP Order Info: [id number] - MG Performed By: #### L 506.1000, L500.4050, L501.5200 #### [facility] [address] [place], [address] GFR/1.73 sq M.predicted among non-blacks MDRD (S/P/Bld) [Vol rate/Area] 72 mL/min/{1.73_m2} Normal >60 [facility] Comment on above: Order Comment: Order Date: 07/19/24 Order Info: [id number] - CMP Order Info: [id number] - MG Result Comment: Non- GFR Calc Performed By: #### L 506.1000, L500.4050, L501.5200 #### [facility] [address] [place], [address] Globulin (S) [Mass/Vol] 3.4 g/dL Normal 2.2-4.2 [facility] Comment on above: Order Comment: Order Date: 07/19/24 Order Info: 0786-1 - [facility] Order Info: [id number] - MG Performed By: #### L 506.1000, L500.4050, L501.5200 #### [facility] [address] [place], [address] Glucose [Mass/Vol] 100 mg/dL Normal 74-106 [facility] Comment on above: Order Comment: Order Date: 07/19/24 Order Info: [id number] - CMP Order Info: [id number] - MG Result Comment: Fast ing Glucose result from 100 to 125 mg/dL suggests IMPAIRED HOMEOSTASIS per A.D.A. criteria. Performed By: #### L 506.1000, L500.4050, L501.5200 #### [facility] [address] [place], [address] Potassium [Moles/Vol] 4.0 mmol/L Normal 3.5-5.1 [facility] Comment on above: Order Comment: Order Date: 07/19/24 Order Info: [id number] - CMP Order Info: [id number] - MG Performed By: #### L 506.1000, L500.4050, L501.5200 #### [facility] [address] [place], [address] Sodium [Moles/Vol] 136 mmol/L Normal 136-145 [facility] Comment on above: Order Comment: Order Date: 07/19/24 Order Info: [id number] - CMP Order Info: [id number] - MG Performed By: #### L 506.1000, L500.4050, L501.5200 #### [facility] [address] [place], [place], [id number] T PROT 7.9 g/dL Normal 6.4-8.2 [facility] Comment on above: Order Comment: Order Date: 07/19/24 Order Info: [id number] - CMP Order Info: [id number] - MG Performed By: #### L 506.1000, L500.4050, L501.5200 #### [facility] [address] [place], [address] Urea nitrogen [Mass/Vol] 20 mg/dL High 7-18 [facility] Comment on above: Order Comment: Order Date: 07/19/24 Order Info: [id number] - CMP Order Info: [id number] - MG Performed By: #### L 506.1000, L500.4050, L501.5200 #### [facility] [address] [place], [address] Estimated glomerular filtrat ion rate (GFR) AmericanOrdered By: Angela Quiros on 07-19-2024 Estimated GFR (MDRD) Amer 87 mL/min >60 [facility] Comment on above: GFR Calc Glomerular filtration rate ( GFR) estimationOrdered By: Angela Quiros on 07-19-2024 Estimated GFR (MDRD) Non-Af Amer 72 mL/min >60 [facility] Comment on above: Non- GFR Calc Glucose measurementOrdered B y: Angela Quiros on 07-19-2024 Glucose [Mass/Vol] 100 mg/dL 74-106 [facility] Comment on above: Fasting Glucose resu lt from 100 to 125 mg/dL suggests IMPAIRED HOMEOSTASIS per A.D.A. criteria. Laboratory - Chemistry and C hemistry - challengeOrdered By: Angela Quiros on 07-19-2024 AST [Catalytic activity/Vol] 21 U/L 15-37 [facility] Magnesiumon 07-19-2024 Magnesium [Mass/Vol] 2.2 mg/dL Normal 1.6-2.6 [facility] Comment on above: Order Comment: Order Date: 07/19/24 Order Info: [id number] - CMP Order Info: [id number] - MG Performed By: #### L 506.1000, L500.4050, L501.5200 #### [facility] [address], [address] Magnesium measurementOrdered By: Angela Quiros on 07-19-2024 Magnesium [Mass/Vol] 2.2 mg/dL 1.6-2.6 [facility] Potassium measurementOrdered By: Angela Quiros on 07-19-2024 Potassium [Moles/Vol] 4.0 mmol/L 3.5-5.1 [facility] Serum anion gap measurementO rdered By: Angela Quiros on 07-19-2024 Anion gap [Moles/Vol] 7 mmol/L 5-15 [facility] Serum globulin measurementOr dered By: Angela Quiros on 07-19-2024 Globulin (S) [Mass/Vol] 3.4 g/dL 2.2-4.2 [facility] [place] Serum or plasma alanine caicedo otransferase (ALT) measurementOrdered By: Angela Quiros on 07-19-2024 ALT [Catalytic activity/Vol] 48 U/L 16-61 [facility] Serum or plasma albumin philippe urement (mass/volume)Ordered By: Angela Quiros on 07-19-2024 Albumin [Mass/Vol] 4.5 g/dL 3.2-5.0 [facility] Serum or plasma alkaline mercy sphatase measurementOrdered By: Angela Quiros on 07-19-2024 ALP [Catalytic activity/Vol] 59 U/L 45-117 [facility] Serum or plasma calcium philippe urement (mass/volume)Ordered By: Angela Quiros on 07-19-2024 Calcium [Mass/Vol] 9.3 mg/dL 8.5-10.1 [facility] Serum or plasma creatinine m easurement (mass/volume)Ordered By: Angela Quiros on 07-19-2024 Creatinine [Mass/Vol] 1.21 mg/dL 0.70-1.30 [facility] Comment on above: The validity of the calculated GFR & GFRAA in patients over 70 years has not been determined. Clinical correlation is essential. Serum or plasma urea nitroge n measurement (mass/volume)Ordered By: Angela Quiros on 07-19-2024 Urea nitrogen [Mass/Vol] 20 mg/dL High 7-18 [facility] Sodium levelOrdered By: Angela Quiros on 07-19-2024 Sodium [Moles/Vol] 136 mmol/L 136-145 [facility] Total proteinOrdered By: Aamir Quiros on 07-19-2024 Protein [Mass/Vol] 7.9 g/dL 6.4-8.2 [facility] Basic Metabolic Profile (BMP )on 02-03-2024 BUN/CRE 18.3 RATIO Normal 10-20 [facility] Comment on above: Performed By: #### L 500.2500 #### [facility] [address] [place], [address] CA,Total 9.2 mg/dL Normal 8.5-10.1 [facility] Comment on above: Performed By: #### L 500.2500 #### [facility] [address] [place], [address] Chloride [Moles/Vol] 105 mmol/L Normal 98-107 [facility] Comment on above: Performed By: #### L 500.2500 #### [facility] [address] [place], [address] CO2 [Moles/Vol] 27.0 mmol/L Normal 21.0-32.0 [facility] Comment on above: Performed By: #### L 500.2500 #### [facility] [address] [place], [address] Creatinine [Mass/Vol] 1.15 mg/dL Normal 0.70-1.30 [facility] Comment on above: Result Comment: The validity of the calculated GFR GFRAA in patients over 70 years has not been determined. Clinical correlation is essential. Performed By: #### L 500.2500 #### [facility] [address] [place], [address] EST GFR - AA 92 mL/min Normal >60 [facility] Comment on above: Result Comment: Afri can [place] GFR Calc Performed By: #### L 500.2500 #### [facility] [address] [place], [address] GAP 6 Normal 5-15 [facility] Comment on above: Performed By: #### L 500.2500 #### [facility] [address] [place], [address] GFR/1.73 sq M.predicted among non-blacks MDRD (S/P/Bld) [Vol rate/Area] 76 mL/min/{1.73_m2} Normal >60 [facility] Comment on above: Result Comment: Non- GFR Calc Performed By: #### L 500.2500 #### [facility] [address] [place], [address] Glucose [Mass/Vol] 97 mg/dL Normal 74-106 [facility] Comment on above: Performed By: #### L 500.2500 #### [facility] [address] [place], [address] Potassium [Moles/Vol] 4.1 mmol/L Normal 3.5-5.1 [facility] Comment on above: Performed By: #### L 500.2500 #### [facility] [address] [place], [address] Sodium [Moles/Vol] 138 mmol/L Normal 136-145 [facility] Comment on above: Performed By: #### L 500.2500 #### [facility] [address] [place], [address] Urea nitrogen [Mass/Vol] 21 mg/dL High 7-18 [facility] Comment on above: Performed By: #### L 500.2500 #### [facility] [address] [place], [address] Final Surgical Pathology Rep evelyn 11-01-2023 Final Surgical Pathology Report . Pathology Reports Accession: Collected Date/Time: Received Date/Time: Pathologist: [id number] 10/28/2023 17:39 EDT 10/31/2023 08:48 EDT HUEY ANTUNEZ MD Final Surgical Pathology Report DIAGNOSIS: A. TERMINAL ILEUM, BIOPSY: - FRAGMENTS OF UNREMARKABLE TERMINAL ILEAL MUCOSA B. RIGHT AND LEFT COLON BIOPSIES: - FRAGMENTS OF UNREMARKABLE COLON MUCOSA CLINICAL INFORMATION: ABDOMINAL PAIN, ABNORMAL CT Procedure: DIAGNOSTIC COLONOSCOPY WITH BXS Preoperative diagnosis: ABDOMINAL PAIN, ABNORMAL CT Postoperative diagnosis: ABDOMINAL PAIN, ABNORMAL CT SPECIMEN: A TERMINAL ILEUM B RIGHT AND LEFT COLON GROSS DESCRIPTION: All parts labelled with patient name and [id number] A. Received in formalin labeled terminal ileum are 4 roach tissue fragments measuring 0.2 to 0.3 x 0.1 cm. TS-1 B. Received in formalin labeled right and left colon biopsy are multiple roach tissue fragments aggregating 1.0 x 0.3 x 0.2 cm. TS-1 Sonja Arvizu, Grossing Tube Maker/ Dr. Raghu Darnell, Pathologist Dictated by Sonja Arvizu MICROSCOPIC DESCRIPTION: The microscopic examination is performed, except in the case of Gross Only. Electronically Signed by Pathology Report verified by [facility] HUEY ANTUNEZ Sign out Date: 11/01/2023 10:08 Performing Lab: [facility], [address] [place] [address] States Pathology Dept Disclaimer If ancillary studies were utilized, the following Laboratory Developed Test (LDT) disclaimer will apply: Under CLIA requirements, [facility] is qualified to perform high complexity testing. For all ancillary stains, positive and negative controls stain appropriately. Performance characteristics of immunohistochemical and chromogenic in-situ hybridization tests have been determined by [facility]. These tests are used for clinical purposes, They should not be regarded as investigational or for research. Normal [facility] ([place]) Absolute lymphocyte countOrd ered By: Angela Neomaggie on 10-19-2023 Lymphocytes Auto (Unsp spec) [#/Vol] 1.11 10*3/uL 0.83-4.51 [facility] Automated lymphocyte count a s percentage of total leukocytesOrdered By: Angela Quiros on 10-19-2023 Lymphocytes/100 WBC Auto (Unsp spec) 12.8 % 19-41 [facility] Basophil percentageOrdered B y: Angela Quiros on 10-19-2023 Basophils/100 WBC (Bld) 0.3 % 0-1 [facility] [place] Bilirubin [Mass/Vol] 0.80 mg/dL 0.20-1.00 [facility] Comment on above: For patients on eltr ombopag therapy, use of Dimension [place] TBIL is not recommended. Chloride [Moles/Vol] 104 mmol/L 98-107 [facility] Eosinophils/100 WBC (Bld) 2.3 % 0-5 [facility] Glucose [Mass/Vol] 124 mg/dL 74-106 [facility] Comment on above: Fasting Glucose resu lt from 100 to 125 mg/dL suggests IMPAIRED HOMEOSTASIS per A.D.A. criteria. Hemoglobin (Bld) [Mass/Vol] 14.4 g/dL 13.0-16.5 [facility] Monocytes/100 WBC (Bld) 7.0 % 0-10 [facility] Neutrophils (Bld) [#/Vol] 6.7 10*3/uL 2.0-7.7 [facility] Neutrophils/100 WBC (Bld) 77.1 % 47-70 [facility] Potassium [Moles/Vol] 4.0 mmol/L 3.5-5.1 [facility] Protein [Mass/Vol] 7.4 g/dL 6.4-8.2 [facility] Sodium [Moles/Vol] 136 mmol/L 136-145 [facility] WBC (Bld) [#/Vol] 8.7 10*3/uL 4.4-11.0 [facility] Determination of erythrocyte mean corpuscular volume (MCV)Ordered By: Angela Quiros on 10-19-2023 MCV (RBC) [Entitic vol] 89.2 fL 80-94 [facility] Erythrocyte distribution wid th ratioOrdered By: Angela Quiros on 10-19-2023 Erythrocyte distribution width (RBC) [Ratio] 12.7 % 11.6-14.6 [facility] Erythrocyte distribution wid th standard deviationOrdered By: Angela Quiros on 10-19-2023 Erythrocyte distribution width (RBC) [Entitic vol] 41.1 fL 35.1-43.9 [facility] Erythrocyte sedimentation ra teOrdered By: Angela Quiros on 10-19-2023 ESR (Bld) [Velocity] 14 mm/h 0-20 [facility] Hematocrit Auto (Bld) [Volum e fraction]Ordered By: Angela Quiros on 10-19-2023 Hematocrit (Bld) [Volume fraction] 43.9 % 40-54 [facility] Immature granulocytes/100 WB C Auto (Bld)Ordered By: Angela Quiros on 10-19-2023 Immature granulocytes/100 WBC (Bld) 0.500 % 0.0-0.9 [facility] Comment on above: IG% - Immature Granu locytes (promyelocytes, myelocytes and metamyelocytes) > 1% indicates that a LEFT SHIFT is Present. Laboratory - Chemistry and C hemistry - challengeOrdered By: Angela Quiros on 10-19-2023 Albumin/Globulin [Mass ratio] 1.1 {ratio} 0.9-2.4 [facility] ALP [Catalytic activity/Vol] 61 U/L 45-117 [facility] ALT [Catalytic activity/Vol] 27 U/L 16-61 [facility] CO2 [Moles/Vol] 27.0 mmol/L 21.0-32.0 [facility] Globulin (S) [Mass/Vol] 3.6 g/dL 2.2-4.2 [facility] [place] Urea nitrogen/Creatinine [Mass ratio] 10.2 mg/mg 10-20 [facility] - Hematology and Cell countsOrdered By: Angela Quiros on 10-19-2023 MCH (RBC) [Entitic mass] 29.3 pg 27.0-32.0 [facility] MCHC (RBC) [Mass/Vol] 32.8 g/dL 32-36 [facility] Nucleated RBC/100 WBC (Bld) [Ratio] 0 % 0-5 [facility] Platelet mean volume (Bld) [Entitic vol] 10.3 fL 6.2-12.0 [facility] Platelets (Bld) [#/Vol] 276 10*3/uL 150-450 [facility] No Panel InformationOrdered By: Angela Quiros on 10-19-2023 Estimated GFR (MDRD) Amer 81 mL/min >60 [facility] Comment on above: GFR Calc Estimated GFR (MDRD) Non-Af Amer 67 mL/min >60 [facility] Comment on above: Non- GFR Calc RBC Auto (Bld) [#/Vol]Ordere d By: Angela Quiros on 10-19-2023 RBC (Bld) [#/Vol] 4.92 10*6/uL 4.6-6.2 [facility] Serum or plasma calcium philippe urement (mass/volume)Ordered By: Angela Quiros on 10-19-2023 Calcium [Mass/Vol] 9.0 mg/dL 8.5-10.1 [facility] Serum or plasma creatinine m easurement (mass/volume)Ordered By: Angela Quiros on 10-19-2023 Creatinine [Mass/Vol] 1.28 mg/dL 0.70-1.30 [facility] Comment on above: The validity of the calculated GFR & GFRAA in patients over 70 years has not been determined. Clinical correlation is essential. Serum or plasma urea nitroge n measurement (mass/volume)Ordered By: Angela Quiros on 10-19-2023 Urea nitrogen [Mass/Vol] 13 mg/dL 7-18 [facility] Stool lactoferrin detection by immunoassayOrdered By: Angela Quiros on 10-19-2023 Lactoferrin IA Ql (Stl) [facility] [place] Thin prep Papanicolaou smear with manual screeningOrdered By: Angela Quiros on 10-19-2023 Thin prep Papanicolaou smear with manual screening 3.8 g/dL 3.2-5.0 [facility] Thin prep Papanicolaou smear with manual screening 15 U/L 15-37 [facility] Thin prep Papanicolaou smear with manual screening 5 5-15 [facility] .Auto Diffon 10-18-2023 Basophil, Absolute 0.1 10 3/mcL Normal 0.0-0.2 [facility] ([place]) Comment on above: Performed By: #### A DIFF, MDW, LIP, CMP, ANEU, GFR, CBC #### [address] [address] Basophils/100 WBC (Bld) 0.4 % Normal 0.0-2.5 A [facility] ([place]) Comment on above: Performed By: #### A DIFF, MDW, LIP, CMP, ANEU, GFR, CBC #### [address] [address] Eosinophil, Absolute 0.2 10 3/mcL Normal 0.0-0.4 [facility] ([place]) Comment on above: Performed By: #### A DIFF, MDW, LIP, CMP, ANEU, GFR, CBC #### [address] [address] Eosinophils/100 WBC (Bld) 1.6 % Normal 0.0-7.0 [facility] ([place]) Comment on above: Performed By: #### A DIFF, MDW, LIP, CMP, ANEU, GFR, CBC #### [address] [address] Lymphocyte, Absolute 1.1 10 3/mcL Normal 0.8-3.9 [facility] ([place]) Comment on above: Performed By: #### A DIFF, MDW, LIP, CMP, ANEU, GFR, CBC #### [address] [address] Lymphocytes/100 WBC (Bld) 8.0 % Low 10.0-50.0 [facility] ([place]) Comment on above: Performed By: #### A DIFF, MDW, LIP, CMP, ANEU, GFR, CBC #### [address] [address] Monocyte, Absolute 1.1 10 3/mcL High 0.2-1.0 [facility] ([place]) Comment on above: Performed By: #### A DIFFGEORGINA, LIP, CMP, ANEU, GFR, CBC #### [address] [address] Monocytes/100 WBC (Bld) 7.8 % Normal 1.7-13.0 A [facility] ([place]) Comment on above: Performed By: #### A MD ALEXW, LIP, CMP, ANEU, GFR, CBC #### [address] [address] Neutrophils/100 WBC (Bld) 82.2 % High 37.0-80.0 [facility] ([place]) Comment on above: Performed By: #### A GEORGINA JOHNSON, LIP, CMP, ANEU, GFR, CBC #### [address] [address] .GFRon 10-18-2023 GFR 70 ml/min/1.73sqm Normal [facility] ([place]) Comment on above: Result Comment: GFR Population mean for , Non- Americans Ages 20-29 = 116 mL/min/1.73 sq.m. Ages 30-39 = 107 mL/min/1.73 sq.m. Ages 40-49 = 99 mL/min/1.73 sq.m. Ages 50-59 = 93 mL/min/1.73 sq.m. Ages 60-69 = 85 mL/min/1.73 sq.m. Ages 70+ = 75 mL/min/1.73 sq.m. Chronic Kidney Disease: Less than 60 mL/min/1.73 square meters End Stage Renal Disease: Less than 15 mL/min/1.73 square meters Performed By: #### A DIFFMDW, LIP, CMP, ANEU, GFR, CBC #### [address] [address] GFR Non- 58 ml/min/1.73sqm Normal [facility] ([place]) Comment on above: Result Comment: GFR Population mean for , Non- Americans Ages 20-29 = 116 mL/min/1.73 sq.m. Ages 30-39 = 107 mL/min/1.73 sq.m. Ages 40-49 = 99 mL/min/1.73 sq.m. Ages 50-59 = 93 mL/min/1.73 sq.m. Ages 60-69 = 85 mL/min/1.73 sq.m. Ages 70+ = 75 mL/min/1.73 sq.m. Chronic Kidney Disease: Less than 60 mL/min/1.73 square meters End Stage Renal Disease: Less than 15 mL/min/1.73 square meters Performed By: #### A DIFF, MDW, LIP, CMP, ANEU, GFR, CBC #### [place] [address] .MDWon 10-18-2023 Monocyte Distribution Width 17.51 Normal 0.00-20.00 [facility] ([place]) Comment on above: Result Comment: For ED adult patients suspected of sepsis, MDW<=20.0 does not rule out sepsis or risk of sepsis Performed By: #### A DIFF, MDW, LIP, CMP, ANEU, GFR, CBC #### [place] [address] .NEUABSon 10-18-2023 Neutrophil, Absolute 11.7 10 3/mcL High 2.9-6.2 A [facility] ([place]) Comment on above: Performed By: #### A DIFF, MDW, LIP, CMP, ANEU, GFR, CBC #### [place] [address] CBCon 10-18-2023 Erythrocyte distribution width (RBC) [Ratio] 13.6 % Normal 11.5-14.5 [facility] ([place]) Comment on above: Performed By: #### A DIFF, MDW, LIP, CMP, ANEU, GFR, CBC #### [place] [address] Hematocrit (Bld) [Volume fraction] 46.1 % Normal 42.0-52.0 [facility] ([place]) Comment on above: Performed By: #### A DIFF, MDW, LIP, CMP, ANEU, GFR, CBC #### [place] [address] Hgb 16.0 G/dL Normal 14.0-18.0 [facility] ([place]) Comment on above: Performed By: #### A DIFF, MDW, LIP, CMP, ANEU, GFR, CBC #### [address] [address] MCH (RBC) [Entitic mass] 29.8 pg Normal 27.0-31.2 [facility] ([place]) Comment on above: Performed By: #### A DIFF, MDW, LIP, CMP, ANEU, GFR, CBC #### [address] [address] MCHC 34.7 G/dL Normal 31.8-35.4 [facility] ([place]) Comment on above: Performed By: #### A DIFF, MDW, LIP, CMP, ANEU, GFR, CBC #### [address] [address] MCV (RBC) [Entitic vol] 85.7 fL Normal 80.0-94.0 A [facility] ([place]) Comment on above: Performed By: #### A DIFF, MDW, LIP, CMP, ANEU, GFR, CBC #### [address] [address] Platelet 275 10 3/mcL Normal 130-400 [facility] ([place]) Comment on above: Performed By: #### A DIFF, MDW, LIP, CMP, ANEU, GFR, CBC #### [address] [address] Platelet mean volume (Bld) [Entitic vol] 8.0 fL Normal 7.4-10.4 [facility] ([place]) Comment on above: Performed By: #### A DIFF, MDW, LIP, CMP, ANEU, GFR, CBC #### [address] [address] RBC 5.37 10 6/mcL Normal 4.04-6.13 [facility] ([place]) Comment on above: Performed By: #### A DIFF, MDW, LIP, CMP, ANEU, GFR, CBC #### [address] [address] WBC 14.2 10 3/mcL High 4.6-10.8 [facility] ([place]) Comment on above: Performed By: #### A GEORGINA JOHNSON, SHIRA, CMP, ANEU, GFR, CBC #### [address] [address] CMPon 10-18-2023 Albumin Level 4.7 G/dL Normal 3.5-5.0 [facility] ([place]) Comment on above: Performed By: #### A GEORGINA JOHNSON, LIP, CMP, ANEU, GFR, CBC #### [address] [address] Albumin/Globulin [Mass ratio] 1.5 {ratio} Normal 1.1-2.5 [facility] ([place]) Comment on above: Performed By: #### A GEORGINA JOHNSON, SHIRA, CMP, ANEU, GFR, CBC #### [address] [address] ALP [Catalytic activity/Vol] 70 U/L Normal 40-135 [facility] ([place]) Comment on above: Performed By: #### A GEORGINA JOHNSON, SHIRA, CMP, ANEU, GFR, CBC #### [address] [address] ALT [Catalytic activity/Vol] 38 U/L Normal 16-63 [facility] ([place]) Comment on above: Performed By: #### A GEORGINA JOHNSON, SHIRA, CMP, ANEU, GFR, CBC #### [address] [address] AST [Catalytic activity/Vol] 19 U/L Normal 10-40 [facility] ([place]) Comment on above: Performed By: #### A GEORGINA JOHNSON, LIP, CMP, ANEU, GFR, CBC #### [address] [address] Bili Total 0.7 mg/dL Normal 0.2-1.0 [facility] ([place]) Comment on above: Result Comment: Use of this assay is not recommended for patients undergoing treatment with eltrombopag due to the potential for falsely elevated results. Performed By: #### A DIFFGEORGINA, LIP, CMP, ANEU, GFR, CBC #### [address] [address] BUN/Creatinine Ratio 17 ratio Normal 7-27 [facility] ([place]) Comment on above: Performed By: #### A DIFF MDRobert, LIP, CMP, ANEU, GFR, CBC #### [address] [address] Calcium [Mass/Vol] 10.0 mg/dL Normal 8.4-10.2 [facility] ([place]) Comment on above: Performed By: #### A GEORGINA JOHNSON, LIP, CMP, ANEU, GFR, CBC #### [address] [address] Chloride [Moles/Vol] 100 mmol/L Normal 98-107 [facility] ([place]) Comment on above: Performed By: #### A GEORGINA JOHNSON, LIP, CMP, ANEU, GFR, CBC #### [address] [address] CO2 [Moles/Vol] 31 mmol/L High 22-29 [facility] ([place]) Comment on above: Performed By: #### A GEORGINA JOHNSON, LIP, CMP, ANEU, GFR, CBC #### [address] [address] Creatinine [Mass/Vol] 1.39 mg/dL High 0.70-1.30 [facility] ([place]) Comment on above: Performed By: #### A DIFFGEORGINA, LIP, CMP, ANEU, GFR, CBC #### [address] [address] Electrolyte Balance 6.0 mEq/L Normal 4.0-15.0 [facility] ([place]) Comment on above: Performed By: #### A ALEX MDW, LIP, CMP, ANEU, GFR, CBC #### [address] [address] Globulin 3.1 G/dL Normal [facility] ([place]) Comment on above: Performed By: #### A DIFF, MDW, LIP, CMP, ANEU, GFR, CBC #### [address] [address] Glucose [Mass/Vol] 104 mg/dL Normal 70-105 [facility] ([place]) Comment on above: Performed By: #### A DIFF, MDW, LIP, CMP, ANEU, GFR, CBC #### [address] [address] Potassium [Moles/Vol] 4.4 mmol/L Normal 3.5-5.1 [facility] ([place]) Comment on above: Performed By: #### A DIFF, MDW, LIP, CMP, ANEU, GFR, CBC #### [address] [address] Sodium [Moles/Vol] 137 mmol/L Normal 136-145 [facility] ([place]) Comment on above: Performed By: #### A ALEX MDW, LIP, CMP, ANEU, GFR, CBC #### [address] [address] Total Protein 7.8 G/dL Normal 6.4-8.2 [facility] ([place]) Comment on above: Performed By: #### A ALEX MDW, LIP, CMP, ANEU, GFR, CBC #### [address] [address] Urea nitrogen [Mass/Vol] 23 mg/dL High 7-18 [facility]) Comment on above: Performed By: #### A DIFF, MDW, LIP, CMP, ANEU, GFR, CBC #### [address] [address] [address] ABD/PELVIS W/ IV CONTRAST ONLYon 10-18-2023 CT ABD/PELVIS W/ IV CONTRAST ONLY ORIGINAL EXAMINATION: CT OF THE ABDOMEN AND PELVIS WITH CONTRAST 10/17/2023 11:39 pm TECHNIQUE: CT of the abdomen and pelvis was performed with the administration of intravenous contrast. Multiplanar reformatted images are provided for review. Automated exposure control, iterative reconstruction, and/or weight based adjustment of the mA/kV was utilized to reduce the radiation dose to as low as reasonably achievable. COMPARISON: CTA chest 08/20/2020, MRI lumbar spine 10/18/2019 HISTORY: ORDERING SYSTEM PROVIDED HISTORY: Reason for Exam: abdominal pain Right lower quadrant pain FINDINGS: No acute osseous abnormality. Small fat containing umbilical hernia. Clear lung bases. The liver, gallbladder, spleen pancreas and both adrenal glands are unremarkable. Symmetric nephrograms. No hydronephrosis, nephrolithiasis or perinephric stranding. No focal bladder wall thickening. The prostate is unremarkable. No small or large bowel dilatation. Subtle inflammatory change of the cecum and terminal ileum, with mild wall thickening in haziness in the surrounding fat. No free air or free fluid. The appendix is normal. The aorta is normal caliber. No pathologically enlarged lymph nodes. IMPRESSION: Minimal inflammatory change and wall thickening of the terminal ileum and cecum, which is nonspecific but can be seen in the setting of inflammatory bowel disease. The appendix is normal. Preliminary Report was Dictated by a Resident Interpreted by: Abdullahi Maurice Preliminary Report By: Yuliana Carney Electronically signed By Abdullahi Maurice Dictated Date: 10/17/2023 11:40:51 PM Prelim Date: 10/17/2023 11:46:31 PM Sign Date: 10/17/2023 11:51:48 PM Ordering Provider: RAMON CHAHAL Normal [facility] ([place]) LIPon 10-18-2023 Lipase Level 34 U/L Normal 16-77 [facility] ([place]) Comment on above: Performed By: #### A DIFF, MDW, LIP, CMP, ANEU, GFR, CBC #### [address] [address] UAon 10-18-2023 Color (U) Yellow Normal [facility] ([place]) Comment on above: Performed By: #### U A #### [address] [address] Glucose (U) [Mass/Vol] Negative Normal Negative [facility] ([place]) Comment on above: Performed By: #### U A #### [address] [address] Ketones Ql (U) Negative Normal Negative [facility] ([place]) Comment on above: Performed By: #### U A #### [address] [address] UA Appear Clear Normal Clear [facility] ([place]) Comment on above: Performed By: #### U A #### Lemuel [address] [address] UA Blood Negative Normal Negative [facility] ([place]) Comment on above: Performed By: #### U A #### [address] [address] UA Leuk Est Negative Normal Negative [facility] ([place]) Comment on above: Performed By: #### U A #### [address] [address] UA Nitrite Negative Normal Negative [facility] ([place]) Comment on above: Performed By: #### U A #### [place] [address] UA pH 6.0 Normal 5.0 - 8.0 [facility] ([place]) Comment on above: Performed By: #### U A #### [address] [address] UA Protein Negative Normal Negative [facility] ([place]) Comment on above: Performed By: #### U A #### [address] [address] UA Spec Grav 1.025 Normal 1.015-1.025 [facility] ([place]) Comment on above: Performed By: #### U A #### [address] [address] UA Specimen Type Clean Catch Normal [facility] ([place]) Comment on above: Performed By: #### U A #### [place] [address] UA Urobilinogen 0.2 E.U./dL Normal 0.2-1.0 [facility] ([place]) Comment on above: Performed By: #### U A #### [place] [address] Urobilinogen (U) [Mass/Vol] Negative Normal Negative [facility] ([place]) Comment on above: Performed By: #### U A #### [address] [address] LABORATORYOrdered By: SYSTEM SYSTEM on 10-17-2023 Albumin BCP dye [Mass/Vol] 4.7 G/dL Normal 3.5 - 5.0 G/dL AO ADM SS Albumin/Globulin [Mass ratio] 1.5 {ratio} Normal 1.1 - 2.5 ratio AO ADM SS ALP [Catalytic activity/Vol] 70 U/L Normal 40 - 135 U/L AO ADM SS ALT With P-5'-P [Catalytic activity/Vol] 38 U/L Normal 16 - 63 U/L AO ADM SS AST With P-5'-P [Catalytic activity/Vol] 19 U/L Normal 10 - 40 U/L AO ADM SS Basophil, Absolute 0.1 103/mcL Normal 0.0 - 0.2 10^3/mcL AO Workflow SS Basophils/100 WBC (Bld) 0.4 % Normal 0.0 - 2.5 % AO Workflow SS Bilirubin [Mass/Vol] 0.7 mg/dL Normal 0.2 - 1 .0 mg/dL AO ADM SS Comment on above: Interpretive Data: U se of this assay is not recommended for patients undergoing treatment with eltrombopag due to the potential for falsely elevated results. Calcium [Mass/Vol] 10.0 mg/dL Normal 8.4 - 10. 2 mg/dL AO ADM SS Chloride [Moles/Vol] 100 mmol/L Normal 98 - 10 7 mmol/L AO ADM SS CO2 [Moles/Vol] 31 mmol/L High 22 - 29 mmol/L AO ADM SS Creatinine [Mass/Vol] 1.39 mg/dL High 0.70 - 1.30 mg/dL AO ADM SS Electrolyte Balance 6.0 mEq/L Normal 4.0 - 15 .0 mEq/L AO ADM SS Eosinophil, Absolute 0.2 103/mcL Normal 0.0 - 0 .4 10^3/mcL AO Workflow SS Eosinophils/100 WBC (Bld) 1.6 % Normal 0.0 - 7.0 % AO Workflow SS Erythrocyte distribution width (RBC) [Ratio] 13.6 % Normal 11.5 - 14.5 % AO Workflow SS GFR/1.73 sq M.predicted among blacks MDRD (S/P/Bld) [Vol rate/Area] 70 ml/min/1.73sqm Invalid Interpretation Code AO Chemistry S Comment on above: Interpretive Data: GFR Population mean for , Non- Americans Ages 20-29 = 116 mL/min/1.73 sq.m. Ages 30-39 = 107 mL/min/1.73 sq.m. Ages 40-49 = 99 mL/min/1.73 sq.m. Ages 50-59 = 93 mL/min/1.73 sq.m. Ages 60-69 = 85 mL/min/1.73 sq.m. Ages 70+ = 75 mL/min/1.73 sq.m. Chronic Kidney Disease: Less than 60 mL/min/1.73 square meters End Stage Renal Disease: Less than 15 mL/min/1.73 square meters GFR/1.73 sq M.predicted among non-blacks MDRD (S/P/Bld) [Vol rate/Area] 58 ml/min/1.73sqm Invalid Interpretation Code AO Chemistry S Comment on above: Interpretive Data: GFR Population mean for , Non- Americans Ages 20-29 = 116 mL/min/1.73 sq.m. Ages 30-39 = 107 mL/min/1.73 sq.m. Ages 40-49 = 99 mL/min/1.73 sq.m. Ages 50-59 = 93 mL/min/1.73 sq.m. Ages 60-69 = 85 mL/min/1.73 sq.m. Ages 70+ = 75 mL/min/1.73 sq.m. Chronic Kidney Disease: Less than 60 mL/min/1.73 square meters End Stage Renal Disease: Less than 15 mL/min/1.73 square meters Globulin 3.1 G/dL Invalid Interpretation Code AO ADM SS Glucose [Mass/Vol] 104 mg/dL Normal 70 - 105 mg/dL AO ADM SS Hematocrit (Bld) [Volume fraction] 46.1 % Normal 42.0 - 52.0 % AO Workflow SS Hemoglobin (Bld) [Mass/Vol] 16.0 G/dL Normal 14.0 - 18.0 G/dL AO Workflow SS Lipase [Catalytic activity/Vol] 34 U/L Normal 16 - 77 U/L AO ADM SS Lymphocyte, Absolute 1.1 103/mcL Normal 0.8 - 3 .9 10^3/mcL AO Workflow SS Lymphocytes/100 WBC (Bld) 8.0 % Low 10.0 - 50.0 % AO Workflow SS MCH (RBC) [Entitic mass] 29.8 pg Normal 27.0 - 31.2 pg AO Workflow SS MCHC 34.7 G/dL Normal 31.8 - 35.4 G/dL AO Workflow SS MCV (RBC) [Entitic vol] 85.7 fL Normal 80.0 - 94.0 fL AO Workflow SS Monocyte distribution width Auto (Bld) [Entitic vol] 17.51 1 Normal 0.00 - 20.00 AO Workflow SS Comment on above: Result Comment: For ED adult patients suspected of sepsis, MDW<=20.0 does not rule out sepsis or risk of sepsis Monocyte, Absolute 1.1 103/mcL High 0.2 - 1.0 10^3/mcL AO Workflow SS Monocytes/100 WBC (Bld) 7.8 % Normal 1.7 - 13.0 % AO Workflow SS Neutrophil, Absolute 11.7 103/mcL High 2.9 - 6 .2 10^3/mcL AO Workflow SS Neutrophils/100 WBC (Bld) 82.2 % High 37.0 - 80.0 % AO Workflow SS Platelet mean volume (Bld) [Entitic vol] 8.0 fL Normal 7.4 - 10.4 fL AO Workflow SS Platelets (Bld) [#/Vol] 275 103/mcL Normal 130 - 400 10^3/mcL AO Workflow SS Potassium [Moles/Vol] 4.4 mmol/L Normal 3.5 - 5.1 mmol/L AO ADM SS Protein [Mass/Vol] 7.8 G/dL Normal 6.4 - 8.2 G/dL AO ADM SS RBC (Bld) [#/Vol] 5.37 106/mcL Normal 4.04 - 6.1 3 10^6/mcL AO Workflow SS Sodium [Moles/Vol] 137 mmol/L Normal 136 - 145 mmol/L AO ADM SS Urea nitrogen [Mass/Vol] 23 mg/dL High 7 - 18 mg/dL AO ADM SS Urea nitrogen/Creatinine [Mass ratio] 17 ratio Normal 7 - 27 ratio AO ADM SS WBC (Bld) [#/Vol] 14.2 103/mcL High 4.6 - 10.8 10^3/mcL AO Workflow SS LABORATORYOrdered By: Karuna Lucia on 10-17-2023 Appearance (U) Clear (10/17/23 10:50 PM) Normal Clear AO Auto Urine SS Bilirubin Ql (U) Negative (10/17/23 10:50 PM) Normal Negative AO Auto Urine SS Color (U) Yellow (10/17/23 10:50 PM) Normal AO Auto Urine SS Glucose Test strip (U) [Mass/Vol] Negative Normal Negative AO Auto Urine SS Hemoglobin Auto test strip (U) [Mass/Vol] Negative (10/17/23 10:50 PM) Normal Negative AO Auto Urine SS Ketones Ql (U) Negative Normal Negative AO Auto Urine SS UA Leuk Est Negative (10/17/23 10:50 PM) Normal Negative AO Auto Urine SS UA Nitrite Negative (10/17/23 10:50 PM) Normal Negative AO Auto Urine SS UA pH 6.0 (10/17/23 10:50 PM) Normal 5.0 - 8.0 AO Auto Urine SS UA Protein Negative Normal Negative AO Auto Urine SS UA Spec Grav 1.025 (10/17/23 10:50 PM) Normal 1.015-1.025 AO Auto Urine SS UA Specimen Type Clean Catch (10/17/23 10:50 PM) Normal AO Auto Urine SS UA Urobilinogen 0.2 E.U./dL Normal 0.2-1.0 AO Auto Urine SS CNOVon 01-18-2023 CNOV Office Visit (UROLWS ) AUGUSTINE MCCALL ([id number]) 1985 M Date Time Provider Department 01/18/23 2:20 PM MILDRED LOZADA During your visit today, we recorded the following information about you: Temperature Pulse Respiration Blood pressure 98 degrees 84/minute 12/minute 122/72 Weight Height 107.5 kg 1.854 m Mildred Lozada PA-C 01/18/2023 3:09 PM Signed Augustine Regalado orrJanuary 18, 2023 Referred by: Self CC: Desires permanent sterilization HPI: 37 year old male states he desire permanent surgical sterilization. Reports fathering 3 children and expressly states he does not desire to father children in the future. Genitourinary history: Hx undescended testis: No Hx stone disease: No Hx UTI/prostatitis/epididi mitis/STI: No Sexual frequency/libido: No , prev TRT - until November 2022 - IM Injection unsure exact dose Urinary sx: No Hematuria: No No family history on file. PAST MEDICAL HISTORY Diagnosis Date Anxiety and depression PAST SURGICAL HISTORY Procedure Laterality Date PAST SURGICAL HISTORY OF Right Broke hand Current Outpatient Medications Medication Sig sertraline (ZOLOFT) 50 mg tablet Take 50 mg by mouth once daily. MAGNESIUM GLYCINATE ORAL Take 600 mg by mouth once daily. No current facility-administered medications for this visit. Allergies: Amoxicillin Social History Tobacco Use Smoking status: Never Smokeless tobacco: Never Vaping Use Vaping Use: Never used Substance Use Topics Alcohol use: Not Currently Drug use: Never Occupation/exposures: None ROS: ENMT: No changes in hearing or vision, no nose bleeds or other nasal problems SKIN: Negative for lesions, rash, and itching. ENDOCRINE: Negative for cold or heat intolerance, polyuria, polydipsia and goiter. RESPIRATORY: Negative for cough, wheezing and shortness of breath CARDIOVASCULAR: Negative for chest pain, leg swelling and palpitations GI: Negative for abdominal discomfort, blood in stools or black stools : Negative for dysuria, frequency and incontinence MUSCULOSKELETAL: Negative for joint pain or swelling, back pain, and muscle pain. PSYCH: Negative for sleep disturbance, mood disorder and recent psychosocial stressors. NEURO: Negative All other systems reviewed and are negative. Physical Exam: BP 122/72 (BP Site: Right Arm, BP Position: Sitting, BP Cuff Size: Large Adult) Pulse 84 Temp 36.7 ?C (98 ?F) (Temporal) Resp 12 Ht 185.4 cm (6' 1) Wt 107.5 kg (237 lb) SpO2 97% BMI 31.27 kg/m? General appearance: cooperative, pleasant, no acute distress, alert and oriented, well hydrated, well nourished male. Genitourinary: Scrotum: non-tender, non-erythematous, no lesions Testes: descended bilaterally, non-tender,nl size bilaterally, no intratesticular masses bilaterally. Epididymes: Intact bilaterally, non-tender, no masses, palpable vas bilaterally. Penis: non-tender, NL phallus, no lesions, circumcision Yes, NL meatus, no identifiable peyronie's plaque. Assessment: 37 year old male desires vasectomy. The patient attests that he watched and understood the [facility]UA Vasectomy video and read and understood the No-Scalpel Vasectomy pamphlet. He was instructed to stop all NSAIDs, aspirin and other blood thinners 5 days prior to the vasectomy. He was instructed to shave entire front of scrotum to the base of the penis the morning of the vasectomy. Postprocedure care, expectations, and limitations were discussed. He voiced understanding of these instructions and stated his questions were answered. Plan: 1) Proceed to vasectomy scheduling I personally counseled this patient about the following and he voiced understanding: a) Vasectomy is a permanent and irreversible form of sterilization b) 1:1,000 rate of recanalization which can results in the return of sperm into the ejaculate after vasectomy c) Patient must use alternative form of control until he is notified that his postprocedure semen analysis contained no sperm. Consultation requested by Self for an opinion regarding vasectomy and my final recommendations will be communicated back to the requesting physician by way of shared Medical record or letter via US mail. Visit duration 30 minutes with approximately 50% of time in counseling Mildred Lozada [facility], MD, KATHY Lozada PA-C 01/18/2023 3:03 PM Signed Vasectomy Providers and Locations Dr. Person: Locations: [facility] and [facility] Can use local, nitrous, and general anesthesia Caity Turk MD - [facility] - Tuesday [place] - Tuesday [facility] [place] [facility] Referring Provider: SELF [[id number]] Allergies As of Date: 01/18/2023 Noted Allergy Reaction AMOXICILLIN 07/26/2013 6 - Diarrhea Date Reviewed: 01/18/2023 Reviewed by: Shannan Wright LPN - Fully Assessed Reason for Visit: Vasectom (more content not included)... Normal [facility] E2on 11-30-2022 Estradiol Level 27.70 pg/mL Normal 0.00-39.80 [facility] ([place]) Comment on above: Result Comment: No te - New Reference Range in effect 20 Adult Female E2 Reference Ranges: Follicular phase 19.5 - 144.2 pg/mL Midcycle 63.9 - 356.7 pg/mL Luteal phase 55.8 - 214.2 pg/mL Post menopausal 0 - 33.2 pg/mL Performed By: #### A GEORGINA JOHNSON, LIP, CMP, ANEU, GFR, CBC #### [place] [id number] [place], [place] [address] LABORATORYOrdered By: SYSTEM SYSTEM on 11-30-2022 E2 [Mass/Vol] 27.70 pg/mL Invalid Interpretation Code 0.00 - 39.80 pg/mL ADM SS Testosterone [Mass/Vol] 850.69 ng/dL Invalid Interpretation Code 123.06 - 813.86 ng/dL ADM SS TESTOon 11-30-2022 Testosterone Lvl 850.69 ng/dL High 123.06-813. 86 [facility] ([place]) Comment on above: Result Comment: Norm al Reference Ranges for Females: Female Premenopause Age 21-60 9.01-47.94 ng/dL Female Postmenopause Age 45-89 <7.00-45.62 ng/dL Performed By: #### A GEORGINA JOHNSON, LIP, CMP, ANEU, GFR, CBC #### [address] [address] LABORATORYOrdered By: SYSTEM SYSTEM on 09-15-2022 Albumin BCP dye [Mass/Vol] 5.0 G/dL Invalid Interpretation Code 3.5 - 5.0 G/dL AO ADM SS Albumin/Globulin [Mass ratio] 1.9 {ratio} Invalid Interpretation Code 1.1 - 2.5 ratio AO ADM SS ALP [Catalytic activity/Vol] 65 U/L Invalid Interpretation Code 40 - 135 U/L AO ADM SS ALT With P-5'-P [Catalytic activity/Vol] 29 U/L Invalid Interpretation Code 16 - 63 U/L AO ADM SS AST With P-5'-P [Catalytic activity/Vol] 21 U/L Invalid Interpretation Code 10 - 40 U/L AO ADM SS Bilirubin [Mass/Vol] 0.6 mg/dL Invalid Interpretation Code 0.2 - 1.0 mg/dL AO ADM SS Calcium [Mass/Vol] 9.6 mg/dL Invalid Interpretation Code 8.4 - 10.2 mg/dL AO ADM SS Chloride [Moles/Vol] 101 mmol/L Invalid Interpretation Code 98 - 107 mmol/L AO ADM SS CO2 [Moles/Vol] 28 mmol/L Invalid Interpretation Code 22 - 29 mmol/L AO ADM SS Creatinine [Mass/Vol] 1.57 mg/dL Invalid Interpretation Code 0.70 - 1.30 mg/dL AO ADM SS Electrolyte Balance 9.0 mEq/L Invalid Interpretation Code 4.0 - 15.0 mEq/L AO ADM SS Free T3 [Mass/Vol] 2.80 pg/mL Invalid Interpretation Code 2.30 - 4.00 pg/mL AO ADM SS Free T4 [Mass/Vol] 0.97 ng/dL Invalid Interpretation Code 0.76 - 1.46 ng/dL AO ADM SS GFR 61 ml/min/1.73sqm Invalid Interpretation Code AO Chemistry S GFR Non- 51 ml/min/1.73sqm Invalid Interpretation Code AO Chemistry S Globulin 2.6 G/dL Invalid Interpretation Code AO ADM SS Glucose [Mass/Vol] 88 mg/dL Invalid Interpretation Code 70 - 105 mg/dL AO ADM SS Potassium [Moles/Vol] 5.0 mmol/L Invalid Interpretation Code 3.5 - 5.1 mmol/L AO ADM SS Protein [Mass/Vol] 7.6 G/dL Invalid Interpretation Code 6.4 - 8.2 G/dL AO ADM SS Sodium [Moles/Vol] 138 mmol/L Invalid Interpretation Code 136 - 145 mmol/L AO ADM SS TSH Qn 2.52 m[IU]/L Invalid Interpretation Code 0.36 - 3.74 mcIU/mL AO ADM SS Urea nitrogen [Mass/Vol] 23 mg/dL Invalid Interpretation Code 7 - 18 mg/dL AO ADM SS Urea nitrogen/Creatinine [Mass ratio] 15 ratio Invalid Interpretation Code 7 - 27 ratio AO ADM SS Vit. 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 Madethis and ate for couple days, then on a Wednesday 06/20 morning, lip swelling,eyelid swelling, and then groin genital swelling. Itchy face and gential area.No hives, no resp, maybe some nausea, no emesis. Sx's lasted about 3 days.Ate this meal Fri, Sat and Sun 9:00pm. Went to bed at 10:00pm.Tried benadryl, ?help.Did temporarily worsen on 06/21.Did have a similar reaction in 5th grade, facial swelling, itching to somedegree, but might have appeared more poison mojgan like.Can eat peanut, tree nuts, eggs, cheese, seafood all okay. And did repeatseafood, peanuts for sure and no issue.Can eat beef and pork.No NSAIDs no abx. No topical new. No new meds, no BP med.Wt steady, good appetite, no bruising, no fever. 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 Angioedema, sequelaGood discussion regarding diagnosis, treatment and addressing pt's/family'sconcerns, total time spent 40 min with greater than 50% of total time spent inface to face counseling and coordination of carePLAN & Instructions given to patient/family:I'm unsure if we can blame a food for this reaction.I think it fits angioedema which may be idiopathic.Let's get blood work screen.When you re-try foods (deer, onion soup mix, ranch, pepperoncino's), start slowOn first try of each food, go 3 step, each by 5-7 minutes.1. Lip dab2. Tongue dab3. Then may have small morsel--- if all okay, may consume per usualFor future reaction, if repeats:1. Benadryl / diphenhydramine 25mg -- 1 pill upto 4 x per day as needed [sedation risk ]2. Prednisone 10mg -- 2 pills 2 x per day daily for 2 days3. Epipen on stand by in event of a severe reaction Normal [facility] Vital Signs Date Time Vital Sign Value Performing Clinician Facility 10-18-2023 00:28-0500 Diastolic blood pressure 74 mm[Hg] RAMON [facility] 10-18-2023 00:28-0500 Diastolic Blood Pressure Non-Invasive 79 mm[Hg] RAMON [facility] 10-18-2023 00:28-0500 Heart rate 70 /min RAMON [facility] 10-18-2023 00:28-0500 Respiratory rate 18 /min RAMON [facility] 10-18-2023 00:28-0500 Systolic blood pressure 127 mm[Hg] RAMON [facility] 10-18-2023 00:28-0500 Systolic Blood Pressure Non-Invasive 132 mm[Hg] RAMON [facility] 10-17-2023 23:17-0500 Diastolic Blood Pressure Non-Invasive 87 mm[Hg] RAMON [facility] 10-17-2023 23:17-0500 Heart rate 85 /min RAMON [facility] 10-17-2023 23:17-0500 Reason For Taking VItal Signs RAMON GODINEZT DO [facility] 10-17-2023 23:17-0500 Respiratory rate 20 /min RAMON GODINEZT DO [facility] 10-17-2023 23:17-0500 Systolic Blood Pressure Non-Invasive 145 mm[Hg] RAMON GODINEZT DO [facility] 10-17-2023 20:49-0500 Body temperature 98.06 [degF] RAMON GODINEZT DO [facility] 10-17-2023 20:49-0500 Diastolic Blood Pressure Non-Invasive 85 mm[Hg] RAMON GODINEZT DO [facility] 10-17-2023 20:49-0500 Heart rate 86 /min RAMON GODINEZT DO [facility] 10-17-2023 20:49-0500 Respiratory rate 24 /min RAMON GODINEZT DO [facility] 10-17-2023 20:49-0500 Systolic Blood Pressure Non-Invasive 133 mm[Hg] RAMON GODINEZT DO [facility] 01-18-2023 14:25-0400 Body height 185.4 cm Mildred Lozada PA-C Work Phone: [facility] 01-18-2023 14:25-0400 Body temperature 98.01 [degF] Mildred Lozada PA-C Work Phone: [facility] 01-18-2023 14:25-0400 Body weight 107.5 kg Mildred Lozada PA-C Work Phone: [facility] 01-18-2023 14:25-0400 Diastolic blood pressure 72 mm[Hg] Mildred Lozada PA-C Work Phone: [facility] 01-18-2023 14:25-0400 Heart rate 84 /min Mildred Lozada PA-C Work Phone: [facility] 01-18-2023 14:25-0400 Respiratory rate 12 /min Mildred Lozada PA-C Work Phone: [facility] 01-18-2023 14:25-0400 SaO2% (BldA) [Mass fraction] 97 % Mildred Lozada PA-C Work Phone: [facility] 01-18-2023 14:25-0400 Systolic blood pressure 122 mm[Hg] Mildred Lozada PA-C Work Phone: [facility] Encounters Encounter Date Encounter Type Care Provider Facility Start: 01-22-2025 End: 01-22-[address] Angela Quiros MD Work Phone: [facility] Work Phone: Start: 01-22-2025 End: 01-22-[address] Angela Quiros MD -Laboratory [facility] Start: 01-22-2025 End: 01-22-2025 ambulatory Angela Quiros Facility:[facility] Start: 11-06-2024 End: 11-06-[address] Angela Quiros MD Work Phone: [facility] Work Phone: Start: 11-06-2024 End: 11-06-[address] Angela Quiros MD -Laboratory, [facility] Start: 11-06-2024 End: 11-06-2024 ambulatory Angela Quiros Facility:[facility] Start: 07-19-2024 End: 07-19-[address] Angela Quiros MD -Laboratory, [facility] Start: 07-19-2024 End: 07-19-2024 ambulatory Angela Quiros Facility:[facility] Start: 02-03-2024 End: 02-03-2024 ambulatory Angela Quiros Facility:[facility] Start: 10-28-2023 End: 11-02-[address] CHRISTIANO MOMIN MD Facility:B Start: 10-28-2023 End: 11-01-[address] CHRISTIANO MOMIN MD [facility] Start: 10-19-2023 End: 10-19-2023 ambulatory [facility] Work Phone: Start: 10-19-2023 End: 10-19-2023 Patient encounter procedure [facility] Work Phone: Start: 10-17-2023 End: 10-18-2023 Emergency department patient visit RAMON CHAHAL DO Facility:B Start: 10-17-2023 End: 10-18-2023 Emergency department patient visit [facility] Start: 01-18-2023 End: 01-19-2023 ambulatory HADLEY MOORE Facility:[facility] Start: 01-18-2023 End: 01-18-2023 Patient encounter procedure Mildred Lozada PA-C Work Phone: Urology Comment on above: Vasectomy evaluation (Primary Dx) Start: 11-30-2022 End: 12-01-2022 ambulatory [facility]UL [employer] [employer] Facility:B Start: 11-30-2022 End: 11-30-2022 Patient encounter procedure TRELL PAUL [employer] [employer] Start: 09-15-2022 End: 09-15-2022 Patient encounter procedure TRELL PAUL [employer] [facility] Start: 06-24-2017 End: 06-24-2017 Ambulatory [facility] Procedures Date Procedure Procedure Detail Performing Clinician Start: 01-22-2025 Vitamin D, 25-hydrox y measurement Dr. Angela Quiros MD Work Phone: Comment on above: Vitamin D StatusDefi ciency: <20 ng/mL (50nmol/L)Insufficiency: 20-30 ng/mL (50-75 nmol/L)Sufficiency: 30-100 ng/mL (75-250 nmol/L)Toxicity: >100 ng/mL (>250 nmol/L) Start: 11-06-2024 Vitamin D, 25-hydrox y measurement Dr. Angela Quiros MD Work Phone: Comment on above: Vitamin D StatusDefi ciency: <20 ng/mL (50nmol/L)Insufficiency: 20-30 ng/mL (50-75 nmol/L)Sufficiency: 30-100 ng/mL (75-250 nmol/L)Toxicity: >100 ng/mL (>250 nmol/L) Start: 10-19-2023 Lactoferrin measurement Start: 10-19-2023 Diagnostic radiograp hy of abdomen Plan of Treatment Date Care Activity Detail Author Start: 10-19-2023 Protein measurement [facility] Start: 04-15-2023 Influenza vaccination INFLUENZ A (Season Ended) [facility] Start: 08-15-2022 DEPRESSION ASSESSMENT DEPRESSION ASS ESSMENT [facility] Start: 2021 LIPID SCREEN LIPID SCREEN [facility] Start: 01-02-2021 COVID-19 VACCINE (3 - Booster for Moderna series) COVID-19 VACCINE (3 - Booster for Moderna series) [facility] Start: 2005 Urine microalbumin profile DTAP,TDAP,TD (1 - Tdap) [facility] Start: 2004 HEPATITIS C SCREENING HEPATITIS C [facility] Start: 2004 HIV SCREENING HIV SCREENING [facility] Start: 1986 HEPATITIS B (1 of 3 - 3-dose series) HEPATITIS B (1 of 3 - 3-dose series) [facility] Immunizations Immunization Date Immunization Notes Care Provider Fa cility 11-07-2020 COVID-19, mRNA, LNP- S, PF, 100 mcg or 50 mcg dose; Translations: [Moderna COVID-19 Vaccine] TRELL PAUL [employer] [facility] 10-10-2020 COVID-19, mRNA, LNP- S, PF, 100 mcg or 50 mcg dose; Translations: [Moderna COVID-19 Vaccine] TRELL EVANS [facility] Vaccine [facility] Payers Date Payer Category Payer Self-pay [id number] 2024 Unknown [id number] 2020 Unknown [id number] 2020 Unknown [facility] P[facility] [id number] 2020-Present [phone] [address] [place] [address] PPO [id number] 1986 Unknown [id number] 1986 Unknown [id number] 1986 Unknown [id number] Self-pay SELF PAY INSURANCE [id number] Unknown [facility] [id number] Unknown [id number] Unknown [id number] Unknown [id number] Unknown [id number] Social History Date Type Detail Facility Start: 08-16-2020 End: 10-17-2023 Tobacco smoking status Never smoked tobacco (finding) [facility] Sex Assigned At Sex [facility] Start: 08-10-2021 Tobacco use and exposure Smokeless tobacco non-user [facility] Start: 01-18-2023 Alcohol intake Ex-drinker (finding) [facility] Start: 1985 Sex Assigned At Not on file [facility] Start: 1985 Sex Assigned At Male [facility] Work Phone: Start: 11-12-2024 Sex Male (finding) [facility] Functional Status Date Assessment Result Facility 10-18-2023 Functional Status Independent [facility] 10-17-2023 Functional Status Standard Safet y ID band on, Call device within reach, Bed in low position, Wheels locked, Bedside Cart Locked, Visitor at bedside, Safety level maintained [facility] Mental Status Date Assessment Result Facility 10-18-2023 Mental Status Orientation Oriented x 4 [facility] 10-17-2023 Mental Status [facility] Clinical Notes 09-15-2022 to 11-01-2023 Patient InstructionsMildred Lozada PA-C - 01/18/2023 3:00 PM EDT Note Date & Type Note Facility 11-01-2023 Note All parts labelled with patient name and [id number]. Received in formalin labeled terminal ileum are 4 roach tissue fragments measuring 0.2 to 0.3 x 0.1 cm. TS-1 B. Received in formalin labeled right and left colon biopsy are multiple roach tissue fragments aggregating 1.0 x 0.3 x 0.2 cm. TS-1 Sonja Arvizu, Grossing Tube Maker/ Dr. Raghu Darnell, Pathologist Dictated by Sonja Arvizu [facility] 10-31-2023 Note All parts labelled with patient name and [id number]. Received in formalin labeled terminal ileum are 4 roach tissue fragments measuring 0.2 to 0.3 x 0.1 cm. TS-1 B. Received in formalin labeled right and left colon biopsy are multiple roach tissue fragments aggregating 1.0 x 0.3 x 0.2 cm. TS-1 Halle Tyson Tube Maker/ Dr. Raghu Darnell, Pathologist Dictated by [facility] 10-31-2023 Note All parts labelled with patient name and [id number]. Received in formalin labeled terminal ileum are 4 roach tissue fragments measuring 0.2 to 0.3 x 0.1 cm. TS-1 B. Received in formalin labeled right and left colon biopsy are multiple roach tissue fragments aggregating 1.0 x 0.3 x 0.2 cm. TS-1 Halle Tyson Tube Maker/ Dr. Raghu Darnell, Pathologist Dictated by [facility] 10-31-2023 Note All parts labelled with patient name and [id number]. Received in formalin labeled terminal ileum are 4 roach tissue fragments measuring 0.2 to 0.3 x 0.1 cm. TS-1 B. Received in formalin labeled right and left colon biopsy are multiple roach tissue fragments aggregating 1.0 x 0.3 x 0.2 cm. TS-1 Halle Tyson Tube Maker/ Dr. Raghu Darnell, Pathologist Dictated by [facility] 10-31-2023 Note All parts labelled with patient name and [id number]. Received in formalin labeled terminal ileum are 4 roach tissue fragments measuring 0.2 to 0.3 x 0.1 cm. TS-1 B. Received in formalin labeled right and left colon biopsy are multiple roach tissue fragments aggregating 1.0 x 0.3 x 0.2 cm. TS-1 Halle Tyson Tube Maker/ Dr. Raghu Darnell, Pathologist Dictated by [facility] 10-31-2023 Note All parts labelled with patient name and [id number]. Received in formalin labeled terminal ileum are 4 roach tissue fragments measuring 0.2 to 0.3 x 0.1 cm. TS-1 B. Received in formalin labeled right and left colon biopsy are multiple roach tissue fragments aggregating 1.0 x 0.3 x 0.2 cm. TS-1 Halle Tyson Tube Maker/ Dr. Raghu Darnell, Pathologist Dictated by [facility] 10-31-2023 Note All parts labelled with patient name and [id number]. Received in formalin labeled terminal ileum are 4 roach tissue fragments measuring 0.2 to 0.3 x 0.1 cm. TS-1 B. Received in formalin labeled right and left colon biopsy are multiple roach tissue fragments aggregating 1.0 x 0.3 x 0.2 cm. TS-1 Halle Tyson Tube Maker/ Dr. Raghu Darnell, Pathologist Dictated by [facility] 10-18-2023 Hospital Discharge instructions Patient Education 10/18/2023 00:13:05 Abdominal Pain Abdominal Pain Abdominal pain is pain in the stomach or belly area. Everyone has this pain from time to time. In many cases it goes away on its own. But abdominal pain can sometimes be due to a serious problem, such as appendicitis. So it s important to know when to get help. Causes of abdominal pain There are many possible causes of abdominal pain. Common causes in adults include: Constipation, diarrhea, or gas Stomach acid flowing back up into the esophagus (acid reflux or heartburn) Severe acid reflux, called GERD (gastroesophageal reflux disease) A sore in the lining of the stomach or small intestine (peptic ulcer) Inflammation of the gallbladder, liver, or pancreas Gallstones or kidney stones Appendicitis Intestinal blockage An internal organ pushing through a muscle or other tissue (hernia) Urinary tract infections In women, menstrual cramps, fibroids, ovarian cysts, pelvic inflammatory disease, or endometriosis Inflammation or infection of the intestines, including Crohn's disease and ulcerative colitis Irritable bowel syndrome Diagnosing the cause of abdominal pain Your healthcare provider will give you a physical exam help find the cause of your pain. If needed, you will have tests. Belly pain has many possible causes. So it can be hard to find the reason for your pain. Giving details about your pain can help. Tell your provider where and when you feel the pain, and what makes it better or worse. Also let your provider know if you have other symptoms such as: Fever Tiredness Upset stomach (nausea) Vomiting Changes in bathroom habits Blood in the stool or black, tarry stool Weight loss that you can't explain (involuntary weight loss?) Also report any family history of stomach or intestinal problems, or cancers. Tell your provider about all your alcohol use and drug use. Tell your provider about all medicines you use, including herbs, vitamins, and supplements. Treating abdominal pain Some causes of pain need emergency medical treatment right away. These include appendicitis or a bowel blockage. Other problems can be treated with rest, fluids, or medicines. Your healthcare provider can give you specific instructions for treatment or self-care based on what is causing your pain. If you have vomiting or diarrhea, sip water or other clear fluids. When you are ready to eat solid foods again, start with small amounts of kwga-jw-dfsmcb, low-fat foods. These include apple sauce, toast, or crackers. When to get medical care Call 911 or go to the hospital right away if you: Can t pass stool and are vomiting Are vomiting blood or have bloody diarrhea or black, tarry diarrhea Have chest, neck, or shoulder pain Feel like you might pass out Have pain in your shoulder blades with nausea Have sudden, severe belly pain Have new, severe pain unlike any you have felt before Have a belly that is rigid, hard, and hurts to touch Call your healthcare provider if you have: Pain for more than 5 days Bloating for more than 2 days Diarrhea for more than 5 days A fever of 100.4 F (38 C) or higher, or as directed by your healthcare provider Pain that gets worse Weight loss for no reason Continued lack of appetite Blood in your stool How to prevent abdominal pain Here are some tips to help prevent abdominal pain: Eat smaller amounts of food at each meal. Don't eat greasy, fried, or other high-fat foods. Don't eat foods that give you gas. Exercise regularly. Drink plenty of fluids. To help prevent GERD symptoms: Quit smoking. Reduce alcohol and foods that increase stomach acid. Don't use aspirin or oyfp-uzv-llxvpnk pain and fever medicines, if possible. This includes nonsteroidal anti-inflammatory drugs (NSAIDs). Lose excess weight. Finish eating at least 2 hours before you go to bed or lie down. Raise the head of your bed. [id number] [employer]. [address] [place] [address]. All rights reserved. This information is not intended as a substitute for professional medical care. Always follow your healthcare professional's instructions. Follow Up Care 10/17/2023 20:40:26 With:NATALIE CONNOLLY MD Address: [facility], [place] [address]- [phone] When:2-4 days With:CHRISTIANO MOMIN MD Address: [address] [facility] [address] [place] [address]- [phone] When:2-4 days With:ANGELA QUIROS MD Address: [facility] [address] [facility] [address] [place] [address]- [phone] When:2-4 days [facility] 10-18-2023 Note Discharge Instructions Thank you for allowing [facility] to assist you with your healthcare needs. The following is important discharge information regarding your hospital visit. Diagnosis from Today's Visit Abdominal pain Abdominal pain-LLQ What to Do Next Instructions from Your Care Team Discharge Return to Work, School, or Sports (Return to Work, School, or Sports) - Ordered -- 10/19/23, May return to: work, 10/18/23 0:13:00 EST Post Acute Orders No qualifying data available. You Need to Schedule the Following Appointments Follow Up with NATALIE CONNOLLY MD When Within 2-4 days Where: [facility] [place] [address] [phone] Follow Up with CHRISTIANO MOMIN MD When Within 2-4 days Where: [address] [facility] [address] [place] [address]- [phone] Follow Up with ANGELA QUIROS MD When Within 2-4 days Where: [address] [facility] [address] [place] [address] [phone] Allergies NKA Medications Please ask your primary doctor or pharmacist before taking any other medication not listed, including over the counter drugs, herbal medications, vitamins and or supplements as they may interact with your home medications. What How Much When Why Instructions Last Dose New acetaminophen-hydrocodone ([place] 325- 5 mg oral tablet) 1 tab(s) by mouth Every 6 hours as needed for as needed for pain Abdominal pain Duration: 3 Days Printed Prescription New ondansetron (ondansetron 4 mg oral tablet, disintegrating) 1 tab(s) by mouth Every 6 hours Duration: 4 Days Printed Prescription Unchanged cetirizine (Zyrtec 10 mg oral tablet) 1 tab(s) by mouth Once a day Unchanged predniSONE (prednisone 10mg tab (TAPER)) Taper 40-30-20-10 x 3 days each dose by mouth Once a day Duration: 12 Days Take with food/ meal Unchanged testosterone (testosterone cypionate) Every week Please take this list to your next doctor s visit. Bring all medications you take, including over the counter medications, herbals and other supplements with you to your doctor s visit. Patients and families are reminded to discard old lists and to update any records with all medication providers or retail pharmacies. Medication Leaflets acetaminophen and hydrocodone (a SEET a MIN [place] fen and sandy DIAZ done) Lortab Elixir, Verdrocet What is the most important information I should know about acetaminophen and hydrocodone? MISUSE OF OPIOID MEDICINE CAN CAUSE ADDICTION, OVERDOSE, OR . Keep the medication in a place where others cannot get to it. Taking opioid medicine during may cause life-threatening withdrawal symptoms in the . Fatal side effects can occur if you use opioid medicine with alcohol, or with other drugs that cause drowsiness or slow your breathing. Stop taking this medicine and call your doctor right away if you have skin redness or a rash that spreads and causes blistering and peeling. What is acetaminophen and hydrocodone? Acetaminophen and hydrocodone is a combination medicine used to relieve moderate to severe pain. Acetaminophen and hydrocodone contains an opioid medicine, and may be habit-forming. Acetaminophen and hydrocodone may also be used for purposes not listed in this medication guide. What should I discuss with my healthcare provider before taking acetaminophen and hydrocodone? You should not use this medicine if you are allergic to acetaminophen or hydrocodone, or if you have: severe asthma or breathing problems; or a blockage in your stomach or intestines. Tell your doctor if you have ever had: breathing problems, sleep apnea (breathing stops during sleep); liver disease; a drug or alcohol addiction; kidney disease; a head injury or seizures; urination problems; or problems with your thyroid, pancreas, or gallbladder. If you use opioid medicine while you are , your baby could become dependent on the drug. This can cause life-threatening withdrawal symptoms in the baby after it is born. Babies born dependent on opioids may need medical treatment for several weeks. Ask a doctor before using opioid medicine if you are . Tell your doctor if you notice severe drowsiness or slow breathing in the nursing baby. How should I take acetaminophen and hydrocodone? Follow all directions on your prescription label. Never take this medicine in larger amounts, or for longer than prescribed. An overdose can damage your liver or cause . Tell your doctor if you feel an increased urge to use more of this medicine. Never share this medicine with another person, especially someone with a history of drug abuse or addiction. MISUSE CAN CAUSE ADDICTION, OVERDOSE, OR . Keep the medicine in a place where others cannot get to it. Selling or giving away this medicine is against the law. Measure liquid medicine carefully. Use the dosing syringe provided, or use a medicine dose-measuring device (not a kitchen spoon). If you need surgery or medical tests, tell the doctor ahead of time that you are using this medicine. You should not stop using this medicine suddenly. Follow your doctor's instructions about tapering your dose. Store at room temperature away from moisture and heat. Keep track of your medicine. You should be aware if anyone is using it improperly or without a prescription. Do not keep leftover opioid medication. Just one dose can cause in someone using this medicine accidentally or improperly. Ask your pharmacist where to locate a drug take-back disposal program. If there is no take-back program, flush the unused medicine down the toilet. What happens if I miss a dose? Since this medicine is used for pain, you are not likely to miss a dose. Skip any missed dose if it is almost time for your next dose. Do not use two doses at one time. What happens if I overdose? Seek emergency medical attention or call the Poison Help line at . An overdose of this medicine can be fatal, especially in a child or other person using the medicine without a prescription. Overdose symptoms may include nausea, vomiting, sweating, severe drowsiness, pinpoint pupils, slow breathing, or no breathing. Your doctor may recommend you get naloxone (a medicine to reverse an opioid overdose) and keep it with you at all times. A person caring for you can give the naloxone if you stop breathing or don't wake up. Your caregiver must still get emergency medical help and may need to perform CPR (cardiopulmonary resuscitation) on you while waiting for help to arrive. Anyone can buy naloxone from a pharmacy or local health department. Make sure any person caring for you knows where you keep naloxone and how to use it. What should I avoid while taking acetaminophen and hydrocodone? Avoid driving or operating machinery until you know how this medicine will affect you. Dizziness or drowsiness can cause falls, accidents, or severe injuries. Do not drink alcohol. Dangerous side effects or could occur. Ask a doctor or pharmacist before using any other medicine that may contain acetaminophen (sometimes abbreviated as APAP). Taking certain medications together can lead to a fatal overdose. What are the possible side effects of acetaminophen and hydrocodone? Get emergency medical help if you have signs of an allergic reaction: hives; difficulty breathing; swelling of your face, lips, tongue, or throat. Opioid medicine can slow or stop your breathing, and may occur. A person caring for you should give naloxone and/or seek emergency medical attention if you have slow breathing with long pauses, blue colored lips, or if you are hard to wake up. In rare cases, acetaminophen may cause a severe skin reaction that can be fatal. This could occur even if you have taken acetaminophen in the past and had no reaction. Stop taking this medicine and call your doctor right away if you have skin redness or a rash that spreads and causes blistering and peeling. Call your doctor at once if you have: noisy breathing, sighing, shallow breathing, breathing that stops; a light-headed feeling, like you might pass out; liver problems--nausea, upper stomach pain, tiredness, loss of appetite, dark urine, jerry-colored stools, jaundice (yellowing of the skin or eyes); low cortisol levels-- nausea, vomiting, loss of appetite, dizziness, worsening tiredness or weakness; o high levels of serotonin in the body--agitation, hallucinations, fever, sweating, shivering, fast heart rate, muscle stiffness, twitching, loss of coordination, nausea, vomiting, diarrhea. Serious breathing problems may be more likely in older adults and in those who are debilitated or have wasting syndrome or chronic breathing disorders. Common side effects include: dizziness, drowsiness, feeling tired; nausea, vomiting, stomach pain; constipation; or headache. This is not a complete list of side effects and others may occur. Call your doctor for medical advice about side effects. You may report side effects to FDA at 0-578-CHE-5476. What other drugs will affect acetaminophen and hydrocodone? You may have breathing problems or withdrawal symptoms if you start or stop taking certain other medicines. Tell your doctor if you also use an antibiotic, antifungal medication, heart or blood pressure medication, seizure medication, or medicine to treat HIV or hepatitis C. Opioid medication can interact with many other drugs and cause dangerous side effects or . Be sure your doctor knows if you also use: cold or allergy medicines, bronchodilator asthma/COPD medication, or a diuretic ('water pill'); medicines for motion sickness, irritable bowel syndrome, or overactive bladder; other opioids--opioid pain medicine or prescription cough medicine; a sedative like Valium--diazepam, alprazolam, lorazepam, Xanax, Klonopin, Versed, and others; drugs that make you sleepy or slow your breathing--a sleeping pill, muscle relaxer, medicine to treat mood disorders or mental illness; drugs that affect serotonin levels in your body--a stimulant, or medicine for depression, Parkinson's disease, migraine headaches, serious infections, or nausea and vomiting. This list is not complete. Other drugs may affect acetaminophen and hydrocodone, including prescription and emjg-wam-vtyjfvc medicines, vitamins, and herbal products. Not all possible interactions are listed here. Where can I get more information? Your doctor or pharmacist can provide more information about acetaminophen and hydrocodone. Remember, keep this and all other medicines out of the reach of children, never share your medicines with others, and use this medication only for the indication prescribed. Every effort has been made to ensure that the information provided by [employer]') is accurate, up-to-date, and complete, but no guarantee is made to that effect. Drug information contained herein may be time sensitive. [employer] information has been compiled for use by healthcare practitioners and consumers in the [place] and therefore [employer] does not warrant that uses outside of the [place] are appropriate, unless specifically indicated otherwise. [employer] drug information does not endorse drugs, diagnose patients or recommend therapy. [employer] drug information is an informational resource designed to assist licensed healthcare practitioners in caring for their patients and/or to serve consumers viewing this service as a supplement to, and not a substitute for, the expertise, skill, knowledge and judgment of healthcare practitioners. The absence of a warning for a given drug or drug combination in no way should be construed to indicate that the drug or drug combination is safe, effective or appropriate for any given patient. [employer] does not assume any responsibility for any aspect of healthcare administered with the aid of information [employer] provides. The information contained herein is not intended to cover all possible uses, directions, precautions, warnings, drug interactions, allergic reactions, or adverse effects. If you have questions about the drugs you are taking, check with your doctor, nurse or pharmacist. Copyright 4909-1039 [employer]. Version: 19.. Revision Date: 04/04/2023. ondansetron (oral) (on DINORAH se burt) What is the most important information I should know about ondansetron? You should not use ondansetron if you are also using apomorphine (Apokyn). What is ondansetron? Ondansetron blocks the actions of chemicals in the body that can trigger nausea and vomiting. Ondansetron is used to prevent nausea and vomiting that may be caused by surgery, cancer chemotherapy, or radiation treatment. Ondansetron may be used for purposes not listed in this medication guide. What should I discuss with my health care provider before taking ondansetron? You should not use ondansetron if: you are also using apomorphine (Apokyn); or you are allergic to ondansetron or similar medicines (dolasetron, granisetron, palonosetron). To make sure ondansetron is safe for you, tell your doctor if you have: liver disease; an electrolyte imbalance (such as low levels of potassium or magnesium in your blood); congestive heart failure, slow heartbeats; a personal or family history of long QT syndrome; or a blockage in your digestive tract (stomach or intestines). Ondansetron is not expected to harm an unborn baby. Tell your doctor if you are . It is not known whether ondansetron passes into breast milk or if it could harm a nursing baby. Tell your doctor if you are breast-feeding a baby. Ondansetron is not approved for use by anyone younger than 4 years old. Ondansetron orally disintegrating tablets may contain phenylalanine. Tell your doctor if you have phenylketonuria (PKU). How should I take ondansetron? Follow all directions on your prescription label. Do not take this medicine in larger or smaller amounts or for longer than recommended. Ondansetron can be taken with or without food. The first dose of ondansetron is usually taken before the start of your surgery, chemotherapy, or radiation treatment. Follow your doctor's dosing instructions very carefully. Take the ondansetron regular tablet with a full glass of water. To take the orally disintegrating tablet (Zofran ODT): Keep the tablet in its blister pack until you are ready to take it. Open the package and peel back the foil. Do not push a tablet through the foil or you may damage the tablet. Use dry hands to remove the tablet and place it in your mouth. Do not swallow the tablet whole. Allow it to dissolve in your mouth without chewing. Swallow several times as the tablet dissolves. To use ondansetron oral soluble film (strip) (Zuplenz): Keep the strip in the foil pouch until you are ready to use the medicine. Using dry hands, remove the strip and place it on your tongue. It will begin to dissolve right away. Do not swallow the strip whole. Allow it to dissolve in your mouth without chewing. Swallow several times after the strip dissolves. If desired, you may drink liquid to help swallow the dissolved strip. Wash your hands after using Zuplenz. Measure liquid medicine with the dosing syringe provided, or with a special dose-measuring spoon or medicine cup. If you do not have a dose-measuring device, ask your pharmacist for one. Store at room temperature away from moisture, heat, and light. Store liquid medicine in an upright position. What happens if I miss a dose? Take the missed dose as soon as you remember. Skip the missed dose if it is almost time for your next scheduled dose. Do not take extra medicine to make up the missed dose. What happens if I overdose? Seek emergency medical attention or call the Poison Help line at . Overdose symptoms may include sudden loss of vision, severe constipation, feeling light-headed, or fainting. What should I avoid while taking ondansetron? Ondansetron may impair your thinking or reactions. Be careful if you drive or do anything that requires you to be alert. What are the possible side effects of ondansetron? Get emergency medical help if you have signs of an allergic reaction: rash, hives; fever, chills, difficult breathing; swelling of your face, lips, tongue, or throat. Call your doctor at once if you have: severe constipation, stomach pain, or bloating; headache with chest pain and severe dizziness, fainting, fast or pounding heartbeats; fast or pounding heartbeats; jaundice (yellowing of the skin or eyes); blurred vision or temporary vision loss (lasting from only a few minutes to several hours); high levels of serotonin in the body--agitation, hallucinations, fever, fast heart rate, overactive reflexes, nausea, vomiting, diarrhea, loss of coordination, fainting. Common side effects may include: diarrhea or constipation; headache; drowsiness; or tired feeling. This is not a complete list of side effects and others may occur. Call your doctor for medical advice about side effects. You may report side effects to FDA at 4-531-SEJ-0575. What other drugs will affect ondansetron? Ondansetron can cause a serious heart problem, especially if you use certain medicines at the same time, including antibiotics, antidepressants, heart rhythm medicine, antipsychotic medicines, and medicines to treat cancer, malaria, HIV or AIDS. Tell your doctor about all medicines you use, and those you start or stop using during your treatment with ondansetron. Taking ondansetron while you are using certain other medicines can cause high levels of serotonin to build up in your body, a condition called 'serotonin syndrome,' which can be fatal. Tell your doctor if you also use: medicine to treat depression; medicine to treat a psychiatric disorder; a narcotic (opioid) medication; or medicine to prevent nausea and vomiting. This list is not complete and many other drugs can interact with ondansetron. This includes prescription and cnie-oiy-zbgxzex medicines, vitamins, and herbal products. Give a list of all your medicines to any healthcare provider who treats you. Where can I get more information? Your pharmacist can provide more information about ondansetron. Remember, keep this and all other medicines out of the reach of children, never share your medicines with others, and use this medication only for the indication prescribed. Every effort has been made to ensure that the information provided by [employer]. ('[employer]') is accurate, up-to-date, and complete, but no guarantee is made to that effect. Drug information contained herein may be time sensitive. [employer] information has been compiled for use by healthcare practitioners and consumers in the [place] and therefore [employer] does not warrant that uses outside of the [place] are appropriate, unless specifically indicated otherwise. [employer] drug information does not endorse drugs, diagnose patients or recommend therapy. [employer] drug information is an informational resource designed to assist licensed healthcare practitioners in caring for their patients and/or to serve consumers viewing this service as a supplement to, and not a substitute for, the expertise, skill, knowledge and judgment of healthcare practitioners. The absence of a warning for a given drug or drug combination in no way should be construed to indicate that the drug or drug combination is safe, effective or appropriate for any given patient. [employer] does not assume any responsibility for any aspect of healthcare administered with the aid of information [employer] provides. The information contained herein is not intended to cover all possible uses, directions, precautions, warnings, drug interactions, allergic reactions, or adverse effects. If you have questions about the drugs you are taking, check with your doctor, nurse or pharmacist. Copyright 8735-3588 [employer]. Version: 16.. Revision Date: 03/17/2023. Education Materials Abdominal Pain Abdominal pain is pain in the stomach or belly area. Everyone has this pain from time to time. In many cases it goes away on its own. But abdominal pain can sometimes be due to a serious problem, such as appendicitis. So it s important to know when to get help. Causes of abdominal pain There are many possible causes of abdominal pain. Common causes in adults include: Constipation, diarrhea, or gas Stomach acid flowing back up into the esophagus (acid reflux or heartburn) Severe acid reflux, called GERD (gastroesophageal reflux disease) A sore in the lining of the stomach or small intestine (peptic ulcer) Inflammation of the gallbladder, liver, or pancreas Gallstones or kidney stones Appendicitis Intestinal blockage An internal organ pushing through a muscle or other tissue (hernia) Urinary tract infections In women, menstrual cramps, fibroids, ovarian cysts, pelvic inflammatory disease, or endometriosis Inflammation or infection of the intestines, including Crohn's disease and ulcerative colitis Irritable bowel syndrome Diagnosing the cause of abdominal pain Your healthcare provider will give you a physical exam help find the cause of your pain. If needed, you will have tests. Belly pain has many possible causes. So it can be hard to find the reason for your pain. Giving details about your pain can help. Tell your provider where and when you feel the pain, and what makes it better or worse. Also let your provider know if you have other symptoms such as: Fever Tiredness Upset stomach (nausea) Vomiting Changes in bathroom habits Blood in the stool or black, tarry stool Weight loss that you can't explain (involuntary weight loss?) Also report any family history of stomach or intestinal problems, or cancers. Tell your provider about all your alcohol use and drug use. Tell your provider about all medicines you use, including herbs, vitamins, and supplements. Treating abdominal pain Some causes of pain need emergency medical treatment right away. These include appendicitis or a bowel blockage. Other problems can be treated with rest, fluids, or medicines. Your healthcare provider can give you specific instructions for treatment or self-care based on what is causing your pain. If you have vomiting or diarrhea, sip water or other clear fluids. When you are ready to eat solid foods again, start with small amounts of kxie-ze-ckkmdh, low-fat foods. These include apple sauce, toast, or crackers. When to get medical care Call 911 or go to the hospital right away if you: Can t pass stool and are vomiting Are vomiting blood or have bloody diarrhea or black, tarry diarrhea Have chest, neck, or shoulder pain Feel like you might pass out Have pain in your shoulder blades with nausea Have sudden, severe belly pain Have new, severe pain unlike any you have felt before Have a belly that is rigid, hard, and hurts to touch Call your healthcare provider if you have: Pain for more than 5 days Bloating for more than 2 days Diarrhea for more than 5 days A fever of 100.4 F (38 C) or higher, or as directed by your healthcare provider Pain that gets worse Weight loss for no reason Continued lack of appetite Blood in your stool How to prevent abdominal pain Here are some tips to help prevent abdominal pain: Eat smaller amounts of food at each meal. Don't eat greasy, fried, or other high-fat foods. Don't eat foods that give you gas. Exercise regularly. Drink plenty of fluids. To help prevent GERD symptoms: Quit smoking. Reduce alcohol and foods that increase stomach acid. Don't use aspirin or kfdn-yvq-cdbacnu pain and fever medicines, if possible. This includes nonsteroidal anti-inflammatory drugs (NSAIDs). Lose excess weight. Finish eating at least 2 hours before you go to bed or lie down. Raise the head of your bed. 8468-7749 [employer]. [address] [place] [address]. All rights reserved. This information is not intended as a substitute for professional medical care. Always follow your healthcare professional's instructions. Additional Information VACCINATE! IT SAVES LIVES! Members of the community who have not yet received the COVID-19 vaccine and would like to receive it can visit one of [facility] vaccine clinics. There are many vaccine clinic locations within the [facility]. For locations and available times, please visit [email or web address] [email or web address] It is important to note that some COVID mobile vaccine clinics are held outdoors and may be canceled in rainy or stormy conditions. To learn more about pediatric vaccinations (ages 5-11), we invite you to visit the [facility] webpage. [email or web address] [email or web address]-Ofqdy-Nxvqsawlfgl-Freq tjumbq-Pzgkc-Tllrbzjob.html To learn more about the COVID-19 vaccine, we invite you to visit the CDC website for a list of frequently asked questions. https://www.cdc.gov/coronavirus/ 2019-ncov/vaccines/faq.html [employer] Patient Portal Access Instructions: Stay connected with your healthcare team and access your personal medical information anytime with the [facility] Patient Portal. If you would like a full copy of your medical records please contact the [facility] Medical Records Department Tuesday through Tuesday between 8a.m. and 4:30p.m. Please follow the directions below to access the portal: 1.Access the email account you provided upon registration to the [facility].2.Look for an invitation email from [facility].3.Open the email and access the invitation link: Accept Invitation to [employer] [facility].Fill in the required gonzalez to create your account. Sign into [email or web address] with your username and password that you created in the above steps to stay up to date. You can then view a summary of results, a summary of your visits, and the ability to download your summaries to your computer or send the information securely to a physician. Remember that your healthcare information is confidential, so carefully consider who you will allow to register on the [employer] Patient Portal for access to your information. You can also access the [employer] Patient Portal on the [employer]Onde. Simply click on Health Records under Health Data and then click on the [employer] logo. HOW TO SAFELY DISPOSE OF PRESCRIPTION MEDICATIONS Please use one of the following methods to safely dispose of your unused medications. 1.Use a drug disposal kit: the drug disposal pouch allows you to safely discard your old and unused drugs. Ask your nurse to give you one when you are discharged.2.Visit a local take-back location: Many local pharmacies and police departments have programs that collect old and unwanted prescription drugs. Call your local pharmacy or go to http://go2 media.Healthy Humans/5I4Ay9r to find one close to you.3.Make use of household items: Use cat litter or old coffee grounds to dispose medications if other options are not available. Mix your drugs with these household products, seal them in an airtight container and throw it into the garbage. Call [facility]: [phone] to be sure your drugs can be disposed of in this way. Some medicines may require a different approach.4.Never flush your medications down the toilet. IF YOU HAVE BEEN PRESCRIBED AN OPIOIDS FOR PAIN If you have been prescribed an opioid (such as hydrocodone, oxycodone or morphine), it is critical to understand the possible side effects and risks of opioid pain medications. Even when taken as directed, opioids can have several side effects including: Tolerance, meaning you might need to take more of a medication for the same pain relief. Nausea, vomiting and/or constipation. Sleepiness, dizziness, dry mouth, confusion, depression or itching. Physical dependence, meaning you have withdrawal symptoms when a medication is stopped ? this can develop within a few days. KNOW YOUR RESPONSIBILITIES It is important to know exactly how much and how often to take the opioid pain medications you are prescribed. Never take opioids in higher amounts or more often than prescribed. Do not combine opioids with alcohol or other drugs that cause drowsiness, such as benzodiazepines, also known as benzos, including diazepam and alprazolam, muscle relaxants or sleep aids. Never sell or share prescription opioids. This is illegal. Store opioids in a secure place and out of reach of others (including children, family, friends and visitors). The last page(s) of this document has been signed and retained as a CHART COPY Signatures Patient Education Materials Abdominal Pain Medication Leaflets acetaminophen and hydrocodone, ondansetron (oral) My discharge plan and instructions have been reviewed and explained to me and I,MCMORROW, AUGUSTINE M understand my current condition and have read and understand these discharge instructions. I have received a written copy of the plan/instructions. If I have questions, I am aware that I should contact my doctor. 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 Multiplanar reformatted images are provided for review. Automated exposure control, iterative reconstruction, and/or weight based adjustment of the mA/kV was utilized to reduce the radiation dose to as low as reasonably achievable. COMPARISON: CTA chest 08/20/2020, MRI lumbar spine 10/18/2019 HISTORY: ORDERING SYSTEM PROVIDED HISTORY: Reason for Exam: abdominal pain Right lower quadrant pain FINDINGS: No acute osseous abnormality. Small fat containing umbilical hernia. Clear lung bases. The liver, gallbladder, spleen pancreas and both adrenal glands are unremarkable. Symmetric nephrograms. No hydronephrosis, nephrolithiasis or perinephric stranding. No focal bladder wall thickening. The prostate is unremarkable. No small or large bowel dilatation. Subtle inflammatory change of the cecum and terminal ileum, with mild wall thickening in haziness in the surrounding fat. No free air or free fluid. The appendix is normal. The aorta is normal caliber. No pathologically enlarged lymph nodes. IMPRESSION: Minimal inflammatory change and wall thickening of the terminal ileum and cecum, which is nonspecific but can be seen in the setting of inflammatory bowel disease. The appendix is normal. Preliminary Report was Dictated by a Resident Interpreted by: Abdullahi Maurice Preliminary Report By: Yuliana Carney Electronically signed By Abdullahi Maurice Dictated Date: 10/17/2023 11:40:51 PM Prelim Date: 10/17/2023 11:46:31 PM Sign Date: 10/17/2023 11:51:48 PM Ordering Provider: [facility] 01-18-2023 Note HNO ID: [id number] Author: Mildred Lozada PA-C Service: ? Author Type: Physician Circular Knitter Type: Progress Notes Filed: 01/18/2023 3:09 PM Note Text: Augustine Regalado McMorrJanuary 18, 2023 Referred by: Self CC: Desires permanent sterilization HPI: 37 year old male states he desire permanent surgical sterilization. Reports fathering 3 children and expressly states he does not desire to father children in the future. Genitourinary history: Hx undescended testis: No Hx stone disease: No Hx UTI/prostatitis/epididimitis/STI : No Sexual frequency/libido: No , prev TRT - until November 2022 - IM Injection unsure exact dose Urinary sx: No Hematuria: No No family history on file. PAST MEDICAL HISTORY Diagnosis Date Anxiety and depression PAST SURGICAL HISTORY Procedure Laterality Date PAST SURGICAL HISTORY OF Right Broke hand Current Outpatient Medications Medication Sig sertraline (ZOLOFT) 50 mg tablet Take 50 mg by mouth once daily. MAGNESIUM GLYCINATE ORAL Take 600 mg by mouth once daily. No current facility-administered medications for this visit. Allergies: Amoxicillin Social History Tobacco Use Smoking status: Never Smokeless tobacco: Never Vaping Use Vaping Use: Never used Substance Use Topics Alcohol use: Not Currently Drug use: Never Occupation/exposures: None ROS: ENMT: No changes in hearing or vision, no nose bleeds or other nasal problems SKIN: Negative for lesions, rash, and itching. ENDOCRINE: Negative for cold or heat intolerance, polyuria, polydipsia and goiter. RESPIRATORY: Negative for cough, wheezing and shortness of breath CARDIOVASCULAR: Negative for chest pain, leg swelling and palpitations GI: Negative for abdominal discomfort, blood in stools or black stools : Negative for dysuria, frequency and incontinence MUSCULOSKELETAL: Negative for joint pain or swelling, back pain, and muscle pain. PSYCH: Negative for sleep disturbance, mood disorder and recent psychosocial stressors. NEURO: Negative All other systems reviewed and are negative. Physical Exam: BP 122/72 (BP Site: Right Arm, BP Position: Sitting, BP Cuff Size: Large Adult) Pulse 84 Temp 36.7 ?C (98 ?F) (Temporal) Resp 12 Ht 185.4 cm (6' 1) Wt 107.5 kg (237 lb) SpO2 97% BMI 31.27 kg/m? General appearance: cooperative, pleasant, no acute distress, alert and oriented, well hydrated, well nourished male. Genitourinary: Scrotum: non-tender, non-erythematous, no lesions Testes: descended bilaterally, non-tender,nl size bilaterally, no intratesticular masses bilaterally. Epididymes: Intact bilaterally, non-tender, no masses, palpable vas bilaterally. Penis: non-tender, NL phallus, no lesions, circumcision Yes, NL meatus, no identifiable peyronie's plaque. Assessment: 37 year old male desires vasectomy. The patient attests that he watched and understood the [facility] Vasectomy video and read and understood the No-Scalpel Vasectomy pamphlet. He was instructed to stop all NSAIDs, aspirin and other blood thinners 5 days prior to the vasectomy. He was instructed to shave entire front of scrotum to the base of the penis the morning of the vasectomy. Postprocedure care, expectations, and limitations were discussed. He voiced understanding of these instructions and stated his questions were answered. Plan: 1) Proceed to vasectomy scheduling I personally counseled this patient about the following and he voiced understanding: a) Vasectomy is a permanent and irreversible form of sterilization b) 1:1,000 rate of recanalization which can results in the return of sperm into the ejaculate after vasectomy c) Patient must use alternative form of control until he is notified that his postprocedure semen analysis contained no sperm. Consultation requested by Self for an opinion regarding vasectomy and my final recommendations will be communicated back to the requesting physician by way of shared Medical record or letter via US mail. Visit duration 30 minutes with approximately 50% of time in counseling EMILY Martins, ETHAN, KATHY [facility] 01-18-2023 Instructions Mildred Lozada PA-C - 01/18/2023 3:03 PM EDT Images from the original note were not included. Vasectomy Providers and Locations Dr. Person: Locations: [facility] and [facility] Can use local, nitrous, and general anesthesia Caity Turk MD - [facility] - Tuesday [place] - Tuesday Go [place] MD - [facility] documented in this encounter [facility] 01-18-2023 History of Present illness Narrative Augustine Regalado McMorrow January 18, 2023 Referred by: Self CC: Desires permanent sterilization HPI: 37 year old male states he desire permanent surgical sterilization. Reports fathering 3 children and expressly states he does not desire to father children in the future. Genitourinary history: Hx undescended testis: No Hx stone disease: No Hx UTI/prostatitis/epididimitis/STI : No Sexual frequency/libido: No , prev TRT - until November 2022 - IM Injection unsure exact dose Urinary sx: No Hematuria: No No family history on file. PAST MEDICAL HISTORY Diagnosis Date Anxiety and depression PAST SURGICAL HISTORY Procedure Laterality Date PAST SURGICAL HISTORY OF Right Broke hand Current Outpatient Medications Medication Sig sertraline (ZOLOFT) 50 mg tablet Take 50 mg by mouth once daily. MAGNESIUM GLYCINATE ORAL Take 600 mg by mouth once daily. No current facility-administered medications for this visit. Allergies: Amoxicillin Social History Tobacco Use Smoking status: Never Smokeless tobacco: Never Vaping Use Vaping Use: Never used Substance Use Topics Alcohol use: Not Currently Drug use: Never Occupation/exposures: None ROS: ENMT: No changes in hearing or vision, no nose bleeds or other nasal problems SKIN: Negative for lesions, rash, and itching. ENDOCRINE: Negative for cold or heat intolerance, polyuria, polydipsia and goiter. RESPIRATORY: Negative for cough, wheezing and shortness of breath CARDIOVASCULAR: Negative for chest pain, leg swelling and palpitations GI: Negative for abdominal discomfort, blood in stools or black stools : Negative for dysuria, frequency and incontinence MUSCULOSKELETAL: Negative for joint pain or swelling, back pain, and muscle pain. PSYCH: Negative for sleep disturbance, mood disorder and recent psychosocial stressors. NEURO: Negative All other systems reviewed and are negative. Physical Exam: BP 122/72 (BP Site: Right Arm, BP Position: Sitting, BP Cuff Size: Large Adult) Pulse 84 Temp 36.7 C (98 F) (Temporal) Resp 12 Ht 185.4 cm (6' 1) Wt 107.5 kg (237 lb) SpO2 97% BMI 31.27 kg/m General appearance: cooperative, pleasant, no acute distress, alert and oriented, well hydrated, well nourished male. Genitourinary: Scrotum: non-tender, non-erythematous, no lesions Testes: descended bilaterally, non-tender,nl size bilaterally, no intratesticular masses bilaterally. Epididymes: Intact bilaterally, non-tender, no masses, palpable vas bilaterally. Penis: non-tender, NL phallus, no lesions, circumcision Yes, NL meatus, no identifiable peyronie's plaque. Assessment: 37 year old male desires vasectomy. The patient attests that he watched and understood the AUA Vasectomy video and read and understood the No-Scalpel Vasectomy pamphlet. He was instructed to stop all NSAIDs, aspirin and other blood thinners 5 days prior to the vasectomy. He was instructed to shave entire front of scrotum to the base of the penis the morning of the vasectomy. Postprocedure care, expectations, and limitations were discussed. He voiced understanding of these instructions and stated his questions were answered. Plan: 1) Proceed to vasectomy scheduling I personally counseled this patient about the following and he voiced understanding: a) Vasectomy is a permanent and irreversible form of sterilization b) 1:1,000 rate of recanalization which can results in the return of sperm into the ejaculate after vasectomy c) Patient must use alternative form of control until he is notified that his postprocedure semen analysis contained no sperm. Consultation requested by Self for an opinion regarding vasectomy and my final recommendations will be communicated back to the requesting physician by way of shared Medical record or letter via [place] mail. Visit duration 30 minutes with approximately 50% of time in counseling EMILY Martins MT, PA-C documented in this encounter [facility] 09-15-2022 Evaluation + Plan note Diagnostic Tests PendingEstradiol Level 09/15/22Testosterone Level Total 09/15/22Vitamin B12 Level 09/15/22Dehydroepiandrosterone Sulfate 09/15/22 [facility] Evaluation note Diagnosis Vasectomy evaluation- Primary Other general counseling and advice for contraceptive management [facility] noteNo assessment information availableWKing[facility] [place] Work Phone: Hospital course Narrative No data available for this section [facility] Hospital Discharge instructions No data available for this section [facility] Progress note No data available for this section [facility] Reason for referral (narrative)No reason for referral information availableWKing's [facility] [place] Work Phone: Summary note* Ruth, HIM Megan L: PERFORM Event Display: Patient Summary Documents Authored Date: [id number] [facility] Summary Purpose Family History No Family History Records FoundNo Family History Records Found No data available for this section No data available for this section No Family History Records FoundNo Family History Records Found Advance Directives No Advanced Directives Records FoundNo Advanced Directives Records FoundNo Advanced Directives Records FoundNo Advanced Directives Records Found Chief Complaint and Reason for Visit Chief Complaint EORDER FOR LAB WORK Additional Source Comments (unrecognized sect ion and content) No Status Records FoundNo Status Records FoundNo Status Records FoundNo Status Records Found INFORMATION SOURCE (unrecogn ized section and content) DATE CREATED AUTHOR 02/07/2018 [facility] DATE CREATED AUTHOR AUTHOR'S ORGANIZ ATION 01/23/[address] [facility] DATE CREATED AUTHOR AUTHOR'S ORGANIZ ATION 11/02/2023 [facility] ([place]) DATE CREATED AUTHOR AUTHOR'S ORGANIZ ATION 01/31/2025 [facility] Care Team (unrecognized sect ion and content) Care Team Personnel Name: ANGELA QUIROS MD Member Role: Primary Care Physician Address: Address: [address] [place] [address]. [address] [place] [address]- [place] Care Team Related Persons Name: RICKY MCCALL Address: [facility] Address: Home [address] [place] [address] [place] Name: VANESSA MCCALL Address: Home [address] [place] [address] [place] [address] [place] Name: SHAKIRA MCCALL Patient Care team informatio n (unrecognized section and content) American History Teacher Relationship Specialty Start Date End Date Hadley Moore MD [address] [facility] [address] [place], [place] [address] PCP - General Internal Medicine 10/06/11 John Farris [address] [place] [id number] Physician Ent - Otolaryngology 07/31/21 Team Status: Active Member Role Status Dates HADLEY GHOUBRIAL Family Provider Active Dr. Angela Quiros MD Primary Care Provider Active Team Status: Inactive Member Role Status Dates Dr. Angela Quiros MD Primary Care Pr ovider, Attending Provider, Referring Provider Active Team Status: Active Member Role Status Dates Dr. Angela Quiros MD Primary Care Provider Active Team Status: Inactive Member Role Status Dates Dr. Angela Quiros MD Primary Care Provider Active Start: July 19, 2024 End: July 19, 2024 Dr. Angela Quiros MD Attending Provider Active Start: July 19, 2024 End: July 19, 2024 Team Status: Inactive Member Role Status Dates Dr. Angela Quiros MD Primary Care Provider Active Start: November 06, 2024 End: November 06, 2024 Dr. Angela Quiros MD Attending Provider Active Start: November 06, 2024 End: November 06, 2024 Dr. Angela Quiros MD Referring Provider Active Start: November 06, 2024 End: November 06, 2024 Team Status: Inactive Member Role Status Dates Dr. Angela Quiros MD Primary Care Provider Active Start: January 22, 2025 End: January 22, 2025 Dr. Angela Quiros MD Attending Provider Active Start: January 22, 2025 End: January 22, 2025 Dr. Angela Quiros MD Referring Provider Active Start: January 22, 2025 End: January 22, 2025 Source Comments (unrecognize d section and content) In the event this informatio n is protected by the Federal Confidentiality of Alcohol and Drug Abuse Patient Records regulations: The Federal rules restrict any use of the information to criminally investigate or prosecute any alcohol or drug abuse patient.[facility] Reason for Visit (unrecogniz ed section and content) Reason Comments Vasectomy-1 Specialty Diagnoses / Procedures Referred By Contac t Referred To Contact Urology / UROLOGY Diagnoses Encounter for follow-up examination after completed treatment for conditions other than malignant neoplasm Vasectomy Consult Procedures OFFICE/OUTPATIENT ESTABLISHED HIGH MDM 40-54 MIN NEW UROL VASECTOMY Self Mildred Lozada PA-C [address] [place] [address] Referral ID Status Reason Start Date Expiration Date Visits Re quested Visits Authorized [id number] Closed 01/18/2023 08/14/2023 1 1 Goals (unrecognized section and content) Goals may be documented in a n alternate section FOR RECORDS PERTAINING TO PATIENTS WHO ARE OR HAVE BEEN ENROLLED IN A CHEMICAL DEPENDENCY/SUBSTANCEABUSE PROGRAM, SOME INFORMATION MAY BE OMITTED. This clinical summary was aggregated from multiple sources. Caution should be exercised in using it in the provision of clinical care. This summary normalizes information from multiple sources, and as a consequence, information in this document may materially change the coding, format and clinical context of patient data. In addition, data may be omitted in some cases. CLINICAL DECISIONS SHOULD BE BASED ON THE PRIMARY CLINICAL RECORDS. [facility] [employer] provides no warranty or guarantee of the accuracy or completeness of information in this document.
[2025-08-07 11:03] LABS: AST(SGOT) 25 U/L (<=37); Alanine Aminotransfer ALT/SGPT 23 U/L (<=46); Albumin, Serum 4.6 g/dL (3.5-5.0); Alkaline Phosphatase 49 U/L (40-129); Anion Gap 10 (7-18); BUN 18 mg/dL (4-19); BUN/Creat Ratio 15.4 RATIO (10-20); Calcium,Total 9.6 mg/dL (7.6-11.0); Carbon Dioxide 27.4 mmol/L (20.0-29.0); Chloride 103 mmol/L (96-106); Globulin 2.5 g/dL (2.2-4.2); Glucose 96 mg/dL (70-99); Magnesium 2.3 mg/dL (1.5-2.2); Potassium 4.1 mmol/L (3.5-5.1); Vitamin D,25 Hydroxy 83.2 ng/mL (30-100)
== END | disposition home or self-care (01) ==
LOC: MTLAB 08:46
PROVIDERS: PCP Family Medicine; Visit Provider Family Medicine
DX: E55.9 Vitamin D deficiency, unspecified (principal); E83.42 Hypomagnesemia
CPT/HCPCS: 36415; 80053; 82306; 83735